=== PATIENT | male | born 1960 | race Caucasian/White ===

== ENCOUNTER → 2016-12-23 | Outpatient (CLI) | payer OTHER ==
[~2016-12-23] MED LIST: APIX5TAB2 PO; ASP81CT PO; CEFU500T34 PO; HCTZ12.5T PO; HYDR12.570 PO; LISI10TA PO; LOSA50TA6 PO; LVT.1T PO; MULT-974 PO; NAPR-248 PO; ONDA-42 PO; OXYC1TAB87 PO; REGADENOSON 0.4 MG/5 ML SYR (LEXISCAN) IV ONE
--- OUTSIDE RECORDS SUMMARY | 2016-12-23 08:25 | XMS REPORT ---
Author Author KAYCEE RESENDIZ [facility] eClinicalWorks Address Unknown Phone Unavailable Care Team Providers Care Funeral Home Director Name Role Phone KAYCEE RESENDIZ CP Unavailable Allergies No Known Allergies Problems Problem Type Condition Code Onset Dates Condition Status Problem Unspecified arthropathy, site unspecified 716.90 Active Problem Other heart block 426.6 Active Problem Pain in joint, shoulder region 719.41 Active Problem PAF (paroxysmal atrial fibrillation) I48.0 Active Problem Essential hypertension I10 Active Problem Acquired hypothyroidism E03.9 Active Problem Unspecified disorders of bursae and tendons in shoulder region 726.10 Active Problem Impacted cerumen 380.4 Active Problem Hypertension I10 Active Problem Other malaise and fatigue 780.79 Active Assessment Acquired hypothyroidism E03.9 Active Problem Unspecified hypothyroidism 244.9 Active Problem Unspecified site of sprain and strain 848.9 Active Medications Medication Code System Code Instructions Start Date End Date Status Dosage Levothyroxine Sodium [facility] [address]-71 112 MCG Orally Once a day Jun 13, 2016 1 tablet on an empty stomach in the morning Results No Known Results Summary Purpose eClinicalWorks Submission
[2016-12-23] MEDS: CATHETER FLUSH 10 ML SYR IV PRN ×2 (11:34→12:58)
[2016-12-23 12:48] VITALS: BP 104/84
--- NOTE | 2016-12-24 07:26 | ECHOCARDIOGRAPHY REPORT ---
PROCEDURE PHYSICIAN: JORJE PAIZ DATE OF PROCEDURE: 12/23/2016 TWO DIMENSIONAL ECHOCARDIOGRAM REPORT PRIMARY PHYSICIAN: OTHER PHYSICIAN: REFERRING PHYSICIAN: ORDERING PHYSICIAN: INDICATION FOR THE PROCEDURE: MEASUREMENTS DERIVED VALUES LV DIAMETER (LAX) NORMALS NORMALS Diastolic 4.4 (3.6-5.2) Eject. Fract. (60%+/-6%) Systolic (2.3-3.9) Diastolic Vol. % Shortening (0.22-0.42) Systolic Vol. Aortic Root 3.1 IVS THICKNESS Diastolic 1.1 (0.6-1.1) LVPW THICKNESS Diastolic 1.2 (0.6-1.1) LA DIAMETER Systolic 3.9 (2.1-3.7) DESCRIPTION: Two-dimensional echocardiography shows normal global left ventricular systolic function. No distinct regional wall motion abnormalities were seen except some paradoxical septal motion during paced ventricular beats or during premature ventricular contractions. Aortic, mitral and tricuspid valve leaflets show good leaflet excursion. There is no significant pericardial effusion. Doppler imaging shows trivial tricuspid regurgitation. There is no Doppler evidence of any significant valvular stenosis. There is no evidence of significant intracardiac shunt on this transthoracic echocardiographic study. Inferior vena cava appears to be of normal size and exhibits normal inspiratory collapse. Pulmonary artery systolic pressure is estimated to be approximately 35 mmHg. CONCLUSIONS: 1. Normal global left ventricular systolic function with an ejection fraction of approximately 55 to 60%. 2. No significant wall motion abnormality 3. Trivial tricuspid regurgitation. 4. No evidence of any significant valvular stenosis. 5. Pulmonary artery systolic pressure is estimated to be approximately 35 mmHg. Job ID: [id number] Dictated Date: 12/23/2016 13:23:56 Aerial Survey Technician Date: 12/24/2016 07:18:57 / misha HUNTLEY
== END ==
LOC: CARD 08:22
PROVIDERS: ATTEND Internal Medicine Cardiovascular Disease
DX: I47.2 Ventricular tachycardia (principal); I48.0 Paroxysmal atrial fibrillation; I44.2 Atrioventricular block, complete; I10 Essential (primary) hypertension; G47.33 Obstructive sleep apnea (adult) (pediatric)
CPT/HCPCS: 93306

== ENCOUNTER → 2017-11-05 | Outpatient (CLI) | payer SELFPAY ==
[~2017-11-05] MED LIST changes: -REGADENOSON 0.4 MG/5 ML SYR (LEXISCAN) IV ONE
[2017-11-05 15:46] LABS: BASOPHILS % (AUTO) 0 % (0-10); EOSINOPHILS # (AUTO) 0.1 10^3/uL (0.0-0.3); EOSINOPHILS % (AUTO) 1 % (0-10); HEMATOCRIT 44 % (40-54); HEMOGLOBIN 15.7 G/DL (13.3-17.7); LYMPHOCYTES # (AUTO) 2.5 X 10^3 (1.0-4.0); LYMPHOCYTES % (AUTO) 34 % (12-44); MEAN CORPUSCULAR HEMOGLOBIN 33 PG (25-34); MEAN CORPUSCULAR HGB CONC 36 G/DL (32-36); MEAN CORPUSCULAR VOLUME 93 FL (80-99); MEAN PLATELET VOLUME 10.2 FL (7.4-10.4); MONOCYTES # (AUTO) 0.7 X 10^3 (0.0-1.0); MONOCYTES % (AUTO) 10 % (0-12); NEUTROPHILS % (AUTO) 55 % (42-75); PLATELET COUNT 233 10^3/uL (130-400); RED BLOOD COUNT 4.75 10^6/uL (4.35-5.85); RED CELL DISTRIBUTION WIDTH 12.5 % (10.0-14.5); WHITE BLOOD COUNT 7.3 10^3/uL (4.3-11.0)
[2017-11-05 16:08] LABS: ALANINE AMINOTRANSFERASE 44 U/L (0-55); ALBUMIN 4.3 GM/DL (3.2-4.5); ALKALINE PHOSPHATASE 66 U/L (40-136); BILIRUBIN,TOTAL 0.8 MG/DL (0.1-1.0); BUN/CREATININE RATIO 17; CALCIUM 9.6 MG/DL (8.5-10.1); CARBON DIOXIDE 20 MMOL/L (21-32); CHLORIDE 110 MMOL/L (98-107); CREATININE SERUM 1.05 MG/DL (0.60-1.30); GFR ESTIMATED > 60; GLUCOSE 93 MG/DL (70-105); MAGNESIUM 2.3 MG/DL (1.8-2.4); SODIUM 141 MMOL/L (135-145); TOTAL PROTEIN 7.6 GM/DL (6.4-8.2)
== END ==
LOC: LAB 15:25
PROVIDERS: ATTEND Nurse Practitioner Family
DX: I48.0 Paroxysmal atrial fibrillation (principal); I44.2 Atrioventricular block, complete; I95.89 Other hypotension
CPT/HCPCS: 36415; 80053; 83735; 85025

== ENCOUNTER → 2017-11-10 | Outpatient (CLI) | payer SELFPAY | LOC: LAB 16:31 | PROVIDERS: ATTEND Nurse Practitioner Family | DX: I48.0 Paroxysmal atrial fibrillation (principal); I44.2 Atrioventricular block, complete; I95.89 Other hypotension | CPT/HCPCS: 36415; 84443 ==

== ENCOUNTER → 2018-03-02 | Outpatient (CLI) | payer OTHER | LOC: CARD 09:07 | PROVIDERS: ATTEND Nurse Practitioner Family | DX: I48.0 Paroxysmal atrial fibrillation (principal); R07.89 Other chest pain; I10 Essential (primary) hypertension; G47.33 Obstructive sleep apnea (adult) (pediatric) | CPT/HCPCS: 93306 ==

== ENCOUNTER 2018-07-15 18:41 | Emergency (ER) | payer SELFPAY ==
[~2018-07-15] VITALS: Ht 172.7 cm; Wt 95.3 kg
--- OUTSIDE RECORDS SUMMARY | 2018-07-15 18:50 | XMS REPORT | Encounter Summary ---
Author Author [facility] Organization [facility] Address Unknown Phone Unavailable Care Team Providers Care A&P Technician Name Role Phone Brigido Juarez MD PCP Reason for Visit * Reason Comments Remote Monitoring to [facility]. Transferred Encounter Details Date Type Department Care Team Description 07/05/2018 Telephone [facility] Cardiology Ajay Neri RN Remote Monitoring [facility]600 Transferred (to Via [address] [place] [id number] [place] [address]. ) [phone] Social History Tobacco Use Types Packs/Day Years Used Date Never Smoker Smokeless Tobacco: Never Used Alcohol Use Drinks/Week oz/Week Comments No Sex Assigned at Date Recorded Not on file as of this encounter Miscellaneous Notes * Telephone Encounter - Ajay Neri RN - 07/12/2018 10:[address] Sainz's office and spoke with the transitions manager rn. She will have the staff accept the request. DB. * Telephone Encounter - Ajay Neri RN - 07/07/2018 8:[address] Melissa Sainz is with [facility] (contact Mukesh Carballo @ [phone]). Request was sent to their practice. DB. * Telephone Encounter - Ajay Neri RN - 07/05/2018 3:53 PM CDT We continue to receive remote transmissions on this patient. Per previous notes in the EMR the patient has transferred CV care to Dr. Melissa Sainz at [facility] in [place], [place]. It appears the patients remote monitoring was never transferred. A request was sent via [employer] website to transfer to the patients remote monitoring to [facility] (Contact : Nereyda Merchant @ [phone]). Db. in this encounter Plan of Treatment Not on fileas of this encounter Visit Diagnoses Not on filein this encounter
--- OUTSIDE RECORDS SUMMARY | 2018-07-15 18:50 | XMS REPORT ---
Author Author PROSPER NATH Organization [facility] Address [address] [place] [address] Care Team Providers Care Mender [employer] Name Role Phone PROSPER NATH Unavailable PROBLEMS Type Condition ICD9-CM Code [id number] Code Onset Dates Condition Status SNOMED Code Problem Prostatism N40.0 Active 46180339 Problem Dilated cardiomyopathy I42.0 Active 433488213 Problem PAF (paroxysmal atrial fibrillation) I48.0 Active 081838772 Problem Acquired hypothyroidism E03.9 Active 972995875 Problem Essential hypertension I10 Active 05555610 ALLERGIES No Information ENCOUNTERS Encounter Location Date Diagnosis [place] [address] [address] Apr, [facility] [address] [address] Apr, [facility] [address] [address] Apr, Acute midline thoracic back pain M54.6 ; Trigger point with back pain M54.9 and Muscle spasm M62.838 [place] [address] [place] [id number] [place] [address] Jan, [facility] [address] [place] [id number] [place] [address]- 9475 Dec, Acquired hypothyroidism E03.9 and Prostatism N40.0 [facility] [address] [address] Dec, [facility] [address] [place] [id number] [place] [address]- 6[address] Nov, [facility] [address] [address] February, Dilated cardiomyopathy I42.0 [facility] [address] [place] [id number] [place] [address]- 5[address] February, Essential hypertension I10 [facility] [address] [place] [id number] [place] [address]- 87[address] Jan, [facility] [address] [place] [id number] [place] [address] 14194- 8045 Nov, Acquired hypothyroidism E03.9 [facility] [address] [place] [id number] [place] [address] 82693- 2662 Nov, [facility] [address] [address] Nov, Hypertension I10 [facility] [address] [place] [id number] [place] [address]14- 9906 Aug, Lipoma of neck D17.0 [facility] [address] [place] [id number] [place] [address]18- 4480 Aug, Skin tag L91.8 [facility] [address] [place] [id number] [place] [address]- 1370 Aug, Acquired hypothyroidism E03.9 and Skin lesions L98.9 [facility] [address] [place] [id number] [place] [address] 11363- 7622 May, Acquired hypothyroidism E03.9 [facility] [address] [place] [id number] [place] [address] 37912- 0544 May, Acquired hypothyroidism E03.9 ; PAF (paroxysmal atrial fibrillation) I48.0 and Essential hypertension I10 [facility] [address] [place] [id number] [place] [address] 23755- 5118 May, Acquired hypothyroidism E03.9 ; Hypertension I10 and PAF ( paroxysmal atrial fibrillation) I48.0 [facility] [address] [place] [id number] [place] [address] 38762- 7428 Dec, Hypertension I10 [facility] [address] [address] Aug, [facility] [address] [place] [id number] [place] [address] 9[address]97- 2904 Jul, [facility] [address] [address] May, [facility] [address] [place] [id number] [place] [address] 41639- 9829 May, [facility] [address] [place] [id number] [place] [address] 07492- 1290 May, Wide-complex tachycardia 427.1 ; Hypertension 401.9 ; PAF ( paroxysmal atrial fibrillation) 427.31 and Apnea, sleep 780.57 [facility] [address], [place] [address] February, Tooth pain 525.9 [facility] [address] [place] [id number] [place] [address] 88727- 1336 February, [facility] [address] [place] [address] 02105- 4896 Jan, [facility] [address] [place] [id number] [place] [address] 12894- 3220 Jan, [facility] [address], [place] [address] 48[address] Dec, [facility] [address] [place] [address] 4[address] Dec, [facility] [address] [place] [address]- 7263 Nov, [facility] [address] [place] [id number] [place] [address] 55629- 6581 Nov, [facility] [address] [place] [address] 4[address] Nov, [facility] [address] [place] [id number] [place] [address] 70849- 0326 Nov, [facility] [place] [facility] [address] [id number] [place] [address] 5287 Nov, [facility] [place] [facility] [address] [id number] [place] [address] Nov, [facility] [place] [facility] [address] [facility] [id number] [place] [address]- 3508 15 Oct, 2014 [facility] [place] [facility] [address] [id number] [place] [address]- 9219 15 Oct, 2014 [facility] [place] [facility] [address] [id number] [place] [address]- 1534 Sep, [facility] [place] [facility] [address] [id number] [place] [address]- 8406 Sep, [facility] [place] [facility] [address] [facility] [id number] [place] [address]- 5460 Sep, [facility] [place] [facility] [address] [facility] [id number] [place] [address]- 1356 Sep, [facility] [place] [facility] [address] [facility] [id number] [place] [address]- 0287 Sep, [facility] [place] [facility] [address] [facility] [id number] [place] [address]- 5134 Sep, [facility] [place] [facility] [address] [facility] [id number], [place] [address]- 65[address] Jul, [facility] [place] [facility] [address] [id number], [place] [address]- [address] Jul, [facility] [place] [facility] [address] [id number], [place] [address]- 4[address] Jul, [facility] [place] [facility] [address] [facility] [id number], [place] [address]- 6865 Jul, [facility] [place] [facility] [address] [facility] [id number], [place] [address]- 2695 Jul, [facility] [place] [facility] [address] [id number] [place] [address]- 6556 Jul, [facility] [place] [facility] [address] [id number] [place] [address]- 3847 Jun, [facility] [place] [facility] [address] [id number] [place] [address]- 0906 Jun, [facility] [place] [facility] [address] [id number] [place] [address]- 4546 Jun, [facility] [place] [facility] [address] [id number] [place] [address]- 9762 May, [facility] [place] [facility] [address] [id number] [place] [address]- 7621 May, [facility] [place] [facility] [address] [id number] [place] [address]- 6618 May, [facility] [place] [facility] [address] [id number] [place] [address]- 6167 May, [facility] [place] [facility] [address] [id number] [place] [address]- 2182 May, [facility] [place] [facility] [address] [id number] [place] [address]- 7785 May, [facility] [place] [facility] [address] [id number] [place] [address]- 6412 Apr, [facility] [place] [facility] [address] [id number] [place] [address]- 9490 Apr, [facility] [place] [facility] [address] [id number] [place] [address]- 8316 Apr, [facility] [place] [facility] [address] [id number] [place] [address]- 9992 Apr, [facility] [place] [facility] [address] [id number] [place] [address]- 2796 Apr, [facility] [place] [facility] [address] [id number] [place] [address]- 0420 Apr, [facility] [place] [facility] [address] [id number] [place] [address]- 2249 Mar, [facility] [place] [facility] [address] [id number] [place] [address]- 6710 Mar, [facility] [place] [facility] [address] [id number] [place] [address]- 3535 Mar, [facility] [place] [facility] [address] [id number] [place] [address]- 9869 Mar, [facility] [place] [facility] [address] [id number] [place] [address]- 3362 Mar, [facility] [place] [facility] [address] [id number] [place] [address]- 3939 Mar, [facility] [place] [facility] [address] [id number] [place] [address]- 8622 Mar, [facility] [place] [facility] [address] [id number] [place] [address]- 7842 February, [facility] [place] [facility] [address] [id number] [place] [address]- 8517 February, [facility] [place] [facility] [address] [id number] [place] [address]- 5972 February, [facility] [place] [facility] [address] [id number] [place] [address]- 8446 February, [facility] [place] [facility] [address] [id number] [place] [address]- 0053 February, [facility] [place] [facility] [address] [id number] [place] [address]- 8107 February, [facility] [place] [facility] [address] [id number] [place] [address]- 6614 Jan, [facility] [place] [facility] [address] [id number] [place] [address]- 2095 Jan, [facility] [place] [facility] [address] [id number] [place] [address]- 6363 Jan, [facility] [place] [facility] [address] [id number] [place] [address]- 3465 28 Jan, 2014 [facility] [place] [facility] [address] [id number] [place] [address]- 1975 Jan, [facility] [place] [facility] [address] [id number] [place] [address]- 0508 Jan, [facility] [place] [facility] [address] [id number] [place] [address]- 3953 Jan, [facility] [place] [facility] [address] [id number] [place] [address]- 8138 Jan, [facility] [place] [facility] [address] [id number] [place] [address]- 7995 Jan, [facility] [place] [facility] [address] [id number] [place] [address]- 8486 Jan, [facility] [place] [facility] [address] [id number] [place] [address]- 7098 Nov, [facility] [place] [facility] [address] [id number] [place] [address]- 7254 Nov, [facility] [place] [facility] [address] [id number] [place] [address]- 9701 Nov, [facility] [place] [facility] [address] [id number] [place] [address]- 7853 Nov, [facility] [place] [facility] [address] [id number] [place] [address]- 1601 Oct, [facility] [place] [facility] [address] [id number] [place] [address]- 2116 Oct, [facility] [place] [facility] [address] [id number] [place] [address]- 7458 Oct, [facility] [place] [facility] [address] [id number] [place] [address]- 2947 Aug, [facility] [address] [id number] [place] [address]- 7133 Aug, [facility] [place] [facility] [address] [id number] [place] [address]- 8566 Jun, [facility] [address] [id number] [place] [address]- 0096 February, [facility] [place] [facility] [address] [id number] [place] [address]- 8156 February, [facility] [address] [id number] [place] [address]- 5619 Dec, [facility] [place] [facility] [address] [id number] [place] [address]- 8246 15 Nov, 2012 [facility] [place] [facility] [address] [id number] [place] [address]- 5786 08 Nov, 2012 [facility] [place] [facility] [address] [id number] [place] [address]- 9034 08 Nov, 2012 [facility] [place] [facility] [address] [id number] [place] [address]- 3476 07 Nov, 2012 [facility] [place] [facility] [address] [id number] [place] [address]- 3436 05 Nov, 2012 [facility] [place] [facility] [address] [id number] [place] [address]- 3866 Oct, [facility] [place] [facility] [address] [id number], [place] [address]- 9846 Oct, [facility] [place] [facility] [address] [id number] [place] [address]- 4496 Aug, [facility] [place] [facility] [address] [id number] [place] [address]- 4366 Aug, [facility] [place] [facility] [address] [id number] [place] [address]- 1136 Oct, [facility] [place] [facility] [address] [facility] [id number] [place] [address]- 6711 Apr, [facility] [address] [facility] [id number] [place] [address]- 9800 Sep, [facility] [address] [facility] [id number] [place] [address]- 3140 Jan, IMMUNIZATIONS No Known Immunizations SOCIAL HISTORY Never Assessed REASON FOR VISIT Rx change PLAN OF CARE VITAL SIGNS MEDICATIONS Medication Instructions Dosage Frequency Start Date End Date Duration Status Baclofen 10 mg Orally Three times a day 1 tablet with food or milk 8h Apr, Apr, 10 days Active RESULTS No Results PROCEDURES No Known procedures INSTRUCTIONS MEDICATIONS ADMINISTERED No Known Medications MEDICAL (GENERAL) HISTORY Type Description Date Medical History hypertension Medical History Arthritis Medical History Hypothyroidism Medical History Sleep apnea Surgical History cardiac pacemaker 02/2017 Surgical History heart cath Hospitalization History surgeries only
--- OUTSIDE RECORDS SUMMARY | 2018-07-15 18:50 | XMS REPORT | Clinical Summary ---
Author Author [facility] Organization [facility] Address Unknown Phone Unavailable Care Team Providers Care Manager Park Name Role Phone Brigido Juarez MD PCP Source Comments Some departments are not documenting in the electronic medical record. If you do not see the information that you expected, contact Release of Information in the Health Information Management department at [phone] for further assistance in locating additional records.[facility] Allergies No Known Allergies Current Medications Prescription Sig. Disp. Refills Start End Date Status Date metoprolol XL (TOPROL XL) Take 50 mg by mouth Active 50 mg extended release daily. tablet hydroCHLOROthiazide Take 12.5 mg by mouth Active (HYDRODIURIL) 12.5 mg every morning. tablet levothyroxine (SYNTHROID) Take 100 mcg by mouth Active 100 mcg tablet daily 30 minutes before breakfast. losartan (COZAAR) 50 mg Take 50 mg by mouth Active tablet daily. acetaminophen (TYLENOL) Take 1,000 mg by mouth Active 500 mg tablet every 6 hours as needed for Pain. Max of 4,000 mg of acetaminophen in 24 hours. vitamins, multiple tablet Take 2 Tabs by mouth Active daily. Chewables calcium carbonate (TUMS) Chew 500 mg by mouth Active 500 mg (200 mg elemental three times daily as calcium) chewable tablet needed. apixaban (ELIQUIS) 5 mg Take 1 Tab by mouth twice 60 Tab 03/18/20 Active tabletIndications: daily. 03/18/17 Resume 17 Paroxysmal atrial this evening, then twice fibrillation (HCC) daily as directed on 03/19/17. Active Problems Problem Noted Date Familial cardiomyopathy (HCC) 05/10/2017 ICD (implantable cardioverter-defibrillator), dual, in situ 03/18/2017 Overview: 03/17/17 [address] ICD by Dr. Mata. NSVT (nonsustained ventricular tachycardia) (HCC) 03/17/2017 Chronic anticoagulation 03/16/2017 Last Assessment & Plan: He has been holding his Eliquis since Thursday in preparation for his procedure. Cardiac pacemaker in situ 01/01/2017 Last Assessment & Plan: He underwent full device check in January which demonstrated stable function. History of complete heart block 12/25/2016 Overview: 02/11/2014 [facility] MRI: medtronic with capsure fix MRI atrial and RV lead Paroxysmal atrial fibrillation (HCC) 12/25/2016 Overview: 2013 Echo: normal LV fx with EF 60% with no wall motion abnormalities, normal RV size and function 2014 Cath showed normal coronaries with normal EF. no angiographically significant cad, mild elevation left ventricular end diastolic pressure, no significant mitral regurgitation 2014 Echo: normal 55 - 60% global left ventricular systolic function, no significant wall motion abnormality, trivial tricuspid regurg, no evidence of valvular stenosis, PAP est 35 mmHg 12/23/16 MPI - regadenoson: no evidence of significant myocardial ischemia or infarction on this study, gating could not be carried out due to an irregular heart rate L ast Assessment & Plan: No atrial fibrillation per his device last visit. He is Eliquis for anticoagulation for stroke risk prophylaxis which is being held at this time. Essential hypertension with goal blood pressure less than 140/90 12/25/2016 Last Assessment & Plan: Well controlled on current therapy. KARLOS (obstructive sleep apnea) 12/25/2016 FHx: sudden 12/25/2016 Overview: father 2 brothers - idiopathic cardiomyopathy, VR and ICD implantation and subsequently cardiac transplants one brother following transplant with pneumonia and thrush one brother living and doing well cardiac transplant 1993 Wide-complex tachycardia (HCC) 12/25/2016 Last Assessment & Plan: He continues to have episodes of NSVT documented on his device. We contacted Justinl to see if he has had any sustained VT from noted on his LifeVest since we last saw him and he has not. Given his significant family history of sudden cardiac and cardiomyopathy, his ventricular arrhythmias, and his abnormal MRI, once again we discussed that we recommend that he undergo implantation of a permanent dual-chamber ICD for sudden cardiac prophylaxis. Once again, the details, benefits, and risks of the procedure were reviewed in detail. All of his and his family's questions were answered to their satisfaction and he wishes to proceed. As stated above, his PET was canceled today as he has only been fasting for 6 hours and a minimum of 18 hour fast is required due to the likelihood of having a false positive. We will try to reschedule this while he is admitted or immediately after discharge. Encounters Date Type Specialty Care Team Description 07/05/2018 Telephone Cardiology Ajay Neri RN Remote Monitoring Transferred (to [facility]. ) 06/23/2018 Hospital Cardiology Yao aMta MD Encounter from Last 3 Months Family History Medical History Relation Name Comments Heart Attack Father Relation Name Status Comments Father Mother Social History Tobacco Use Types Packs/Day Years Used Date Never Smoker Smokeless Tobacco: Never Used Alcohol Use Drinks/Week oz/Week Comments No Sex Assigned at Date Recorded Not on file Last Filed Vital Signs Vital Sign Reading Time Taken Blood Pressure 120/90 05/01/2017 1:52 PM CDT Pulse 71 05/01/2017 1:52 PM CDT Temperature 36.7 C (98.1 F) 03/18/2017 9:35 AM CDT Respiratory Rate - - Oxygen Saturation 97% 03/18/2017 9:35 AM CDT Inhaled Oxygen - - Concentration Weight 103.9 kg (229 lb 1.6 oz) 05/01/2017 1:52 PM CDT Height 170.2 cm (5' 7") 05/01/2017 1:52 PM CDT Body Mass Index 35.88 05/01/2017 1:52 PM CDT Plan of Treatment Health Maintenance Due Date Last Done Comments HEPATITIS C SCREENING 1961 PHYSICAL (COMPREHENSIVE) 1968 EXAM PERTUSSIS VACCINE 1972 HIV SCREENING 1976 TETANUS VACCINE 1978 COLORECTAL CANCER 2011 SCREENING SHINGLES RECOMBINANT 2011 VACCINE (1 of 2) INFLUENZA VACCINE 07/26/2018 Implants Implanted Type Area Manager Automotive Device Expiration Model / Identifier Date Serial / Lot Chest Pacemaker Procedures Procedure Name Priority Date/Time Associated Diagnosis Comments DEVICE EVALUATION - Routine 06/24/2018 ICD (implantable Results for this REMOTE ICD 10:29 AM CDT cardioverter-defibrillato procedure are in the r) in place results section. from Last 3 Months Results * DEVICE EVALUATION - REMOTE ICD (06/24/2018 10:29 AM) Generator Model # Evera MRI XT DR Bermudez OTHER OUTSIDE LAB [id number] Generator Serial # [id number] OTHER OUTSIDE LAB Generator Implnat Date 03/17/2017 OTHER OUTSIDE LAB Remote Monitor Serial# [id number] OTHER OUTSIDE LAB Accssory Serial Number MyCarelink OTHER OUTSIDE LAB PRINCE/EOL Indicator BV 2.73 OTHER OUTSIDE LAB Generator Manager Automotive Medtronic OTHER OUTSIDE LAB Generator Investigational No OTHER OUTSIDE LAB Wireless Generator Yes OTHER OUTSIDE LAB Device Type DDD-ICD OTHER OUTSIDE LAB Generator MRI Conditional Yes OTHER OUTSIDE LAB Device [place] [employer] OTHER OUTSIDE LAB Transmitter Compatible Remote Connectivity Cellular adaptor OTHER OUTSIDE LAB Atrial Lead Model # 5086MRI CapSureFix OTHER OUTSIDE LAB Atrial Lead Serial # [id number] OTHER OUTSIDE LAB Atrial Lead Implant Date 02/11/2014 OTHER OUTSIDE LAB Atrial Lead Diaph. na OTHER OUTSIDE LAB Stimulation Atrial Lead Manager Automotive Medtronic OTHER OUTSIDE LAB Atrial Lead No OTHER OUTSIDE LAB Investigational Atrial Lead MRI Yes OTHER OUTSIDE LAB Conditional Atrial Lead Fixation active fixation OTHER OUTSIDE LAB Atrial Lead Location right atrial appendage OTHER OUTSIDE LAB Atrial Lead Pin Connector IS1 OTHER OUTSIDE LAB Atrial Lead Polarity Bipolar OTHER OUTSIDE LAB RV Lead Model # [employer] Quattro Secure S MRI OTHER OUTSIDE LAB Aidan 6935M - 62cm RV Lead Serial # [id number] OTHER OUTSIDE LAB RV Lead Implant Date 03/17/2017 OTHER OUTSIDE LAB RV Lead Diaph. 10 OTHER OUTSIDE LAB Stimulation RV Lead Manager Automotive Medtronic OTHER OUTSIDE LAB RV Lead Investigational No OTHER OUTSIDE LAB RV Lead MRI Conditional Yes OTHER OUTSIDE LAB RV Lead Fixation active fixation OTHER OUTSIDE LAB RV Lead Location RV low septum OTHER OUTSIDE LAB RV Lead Coil Single OTHER OUTSIDE LAB Device Mode DDDR OTHER OUTSIDE LAB Lower Rate Limit 60 OTHER OUTSIDE LAB Upper Rate Limit 130 OTHER OUTSIDE LAB Sensor Rate Limit 130 OTHER OUTSIDE LAB Pace AV Delay 180 OTHER OUTSIDE LAB Sense AV Delay 150 OTHER OUTSIDE LAB VT Monitor 167 OTHER OUTSIDE LAB VT Detect Rate (bpm) 171 OTHER OUTSIDE LAB VT Detect Rate Tx ATP AND SHOCK OTHER OUTSIDE LAB FVT Detect Rate (bpm) 250 OTHER OUTSIDE LAB FVT Detect Rate Tx ATP AND SHOCK OTHER OUTSIDE LAB VF Detect Rate (bpm) 200 OTHER OUTSIDE LAB VF Detect Rate Tx ATP AND SHOCK OTHER OUTSIDE LAB Mode Switch (bpm) 150 OTHER OUTSIDE LAB High A Rate Detect >150 bpm with treatment OTHER OUTSIDE LAB Mode Switch Status On OTHER OUTSIDE LAB Device Implanted By Yao Mata MD OTHER OUTSIDE LAB EP Device Followed by Yao Mata MD OTHER OUTSIDE LAB Name On AntiCoag Date verified 03/25/18 OTHER OUTSIDE LAB EP Device Followed By JOHANA OTHER OUTSIDE LAB Known Diagnosed AFib Yes OTHER OUTSIDE LAB On Anticoagulation Yes OTHER OUTSIDE LAB Known Diagnosed VT VT Yes OTHER OUTSIDE LAB ATP No OTHER OUTSIDE LAB Device Shock No OTHER OUTSIDE LAB Date of Last Programming 05/01/17 OTHER OUTSIDE LAB Next Programming Check 04/2018 OTHER OUTSIDE LAB Due Date of Last ICM 03/24/18 OTHER OUTSIDE LAB Evaluation Next ICM Check Due 06/22/18 OTHER OUTSIDE LAB HF Patient Yes OTHER OUTSIDE LAB Date of Last Remote Check 06/23/18 OTHER OUTSIDE LAB Next Remote Check Due 09/22/18 OTHER OUTSIDE LAB Enrollment Date 03/18/17 OTHER OUTSIDE LAB Date of baseline remote 03/18/17 OTHER OUTSIDE LAB transmission AT/AF Daily [place] Hours 6 OTHER OUTSIDE LAB Average Vent Rate during 100 OTHER OUTSIDE LAB AT/AF #BPM Average Vent Rate During 6 OTHER OUTSIDE LAB AT/AF #Hours Remote Monitoring? Yes OTHER OUTSIDE LAB Daily [place] Threshld On OTHER OUTSIDE LAB Alert? Average Venticular Rate On OTHER OUTSIDE LAB AT/AF On/Off VF Detection/Therapy Off On OTHER OUTSIDE LAB Device Remote Manual Yes OTHER OUTSIDE LAB Downloads Remote Check? Yes OTHER OUTSIDE LAB Narrative Performed At OTHER OUTSIDE LAB Current Monitoring Period - 06/23/18 through 09/22/18 [07/05/2018 3:46:50 PM - AJAY NERI] Patient initiated interrogation received on 07/01 and reviewed today for unknown reason.Device function appears normal. Presenting EGM shows AP - CNC OPERATOR MACHINIST @ 80's bpm (07/01 @ 2205). Events noted since 06/23/18: Atrial:1 event with an atrial burden of <0.1% that lasted 2 min 46 sec on 06/26 that shows brief Atrial Fibrillation/Flutter. Patient has a known history of Atrial Fibrillation with Eliquis in place. Ventricular:None. Thoracic impedence is stable. Per previous notes in the EMR the patient has transferred CV care to Dr. Melissa Sainz at [facility] in [place], [place]. Will facilitate the transfer of the patients remote monitoring. Results routed to Dr. Riley for review and signature. DB. [06/24/2018 10:32:09 AM - MARIELOS CHAMORRO] Please see scanned data sheets for further review. Scheduled Carelink transmission received for dual chamber ICD. Device function appears appropriate. Presenting EGM shows AP-CNC OPERATOR MACHINIST rate of 71 bpm. Battery longevity 7.5 years. Events noted since 06/02/18: Atrial:1 AT/AF event on 06/13/18 lasting 1 min 47 sec. EGM appears to show AFL with VS. Rapid onset and term seen. Avg A-rate of ~273 bpm and V-rate of 69-109 bpm. Pt has known Hx of PAF and is currently on Eliquis. Ventricular:1 VHR event on 06/05/18 lasting ~1 sec. EGM suggests NSVT. Rapid onset and term seen. V-rate of ~200 bpm. Pt is currently CNC OPERATOR MACHINIST - 99.3%. Thoracic Impedance trend is stable for this patient. Next remote scheduled for 3 mo[address] Results routed to Dr. Montiel, Tobias for signature and review. __ Performing Organization Address City/State/Zipcode Phone Number OTHER OUTSIDE LAB from Last 3 Months
--- OUTSIDE RECORDS SUMMARY | 2018-07-15 18:50 | XMS REPORT | Encounter Summary ---
Author Author [facility] Organization [facility] Address Unknown Phone Unavailable Care Team Providers Care Tomography Technologist Name Role Phone Brigido Juarez MD PCP Encounter Details Date Type Department Care Team Description 06/23/2018 [facility] Cardiology Yao Mata MD Encounter Remote Device Check [address] [phone] [address] [place], [place] [id number] Social History Tobacco Use Types Packs/Day Years Used Date Never Smoker Smokeless Tobacco: Never Used Alcohol Use Drinks/Week oz/Week Comments No Sex Assigned at Date Recorded Not on file as of this encounter Medications at Time of Discharge Medication Sig. Disp. Refills Start Date End Date acetaminophen (TYLENOL) Take 1,000 mg by mouth 500 mg tablet every 6 hours as needed for Pain. Max of 4,000 mg of acetaminophen in 24 hours. apixaban (ELIQUIS) 5 mg Take 1 Tab by mouth twice 60 Tab 03/18/2017 tabletIndications: daily. 03/18/17 Resume Paroxysmal atrial this evening, then twice fibrillation (HCC) daily as directed on 03/19/17. calcium carbonate (TUMS) Chew 500 mg by mouth 500 mg (200 mg elemental three times daily as calcium) chewable tablet needed. hydroCHLOROthiazide Take 12.5 mg by mouth (HYDRODIURIL) 12.5 mg every morning. tablet levothyroxine (SYNTHROID) Take 100 mcg by mouth 100 mcg tablet daily 30 minutes before breakfast. losartan (COZAAR) 50 mg Take 50 mg by mouth tablet daily. metoprolol XL (TOPROL XL) Take 50 mg by mouth 50 mg extended release daily. tablet vitamins, multiple tablet Take 2 Tabs by mouth daily. Chewables as of this encounter Plan of Treatment Not on fileas of this encounter Procedures Procedure Name Priority Date/Time Associated Diagnosis Comments DEVICE EVALUATION - Routine 06/24/2018 ICD (implantable Results for this REMOTE ICD 10:29 AM CDT cardioverter-defibrillato procedure are in the r) in place results section. in this encounter Results * DEVICE EVALUATION - REMOTE ICD (06/24/2018 10:29 AM) Generator Model # Evera MRI XT DR Bermudez OTHER OUTSIDE LAB [id number] Generator Serial # [id number] OTHER OUTSIDE LAB Generator Implnat Date 03/17/2017 OTHER OUTSIDE LAB Remote Monitor Serial# [id number] OTHER OUTSIDE LAB Accssory Serial Number MyCarelink OTHER OUTSIDE LAB PRINCE/EOL Indicator BV 2.73 OTHER OUTSIDE LAB Generator Paediatric Thoracic Physician Medtronic OTHER OUTSIDE LAB Generator Investigational No OTHER OUTSIDE LAB Wireless Generator Yes OTHER OUTSIDE LAB Device Type DDD-ICD OTHER OUTSIDE LAB Generator MRI Conditional Yes OTHER OUTSIDE LAB Device [place] [employer] OTHER OUTSIDE LAB Transmitter Compatible Remote Connectivity Cellular adaptor OTHER OUTSIDE LAB Atrial Lead Model # [id number] CapSureFix OTHER OUTSIDE LAB Atrial Lead Serial # [id number] OTHER OUTSIDE LAB Atrial Lead Implant Date 02/11/2014 OTHER OUTSIDE LAB Atrial Lead Diaph. na OTHER OUTSIDE LAB Stimulation Atrial Lead Paediatric Thoracic Physician Medtronic OTHER OUTSIDE LAB Atrial Lead No [...] 6935M - 62cm RV Lead Serial # [id number] OTHER OUTSIDE LAB RV Lead Implant Date 03/17/2017 OTHER OUTSIDE LAB RV Lead Diaph. 10 OTHER OUTSIDE LAB Stimulation RV Lead Paediatric Thoracic Physician Medtronic OTHER OUTSIDE LAB RV Lead Investigational [...] 03/18/17 OTHER OUTSIDE LAB transmission AT/AF Daily [place] Hours 6 OTHER OUTSIDE LAB Average Vent Rate during 100 OTHER OUTSIDE LAB AT/AF #BPM Average Vent Rate During 6 OTHER OUTSIDE LAB AT/AF #Hours Remote Monitoring? Yes OTHER OUTSIDE LAB Daily [place] Threshld On OTHER OUTSIDE LAB Alert? Average Venticular Rate On OTHER OUTSIDE LAB AT/AF On/Off VF Detection/Therapy Off On OTHER OUTSIDE LAB Device Remote Manual Yes OTHER OUTSIDE LAB Downloads Remote Check? Yes OTHER OUTSIDE LAB Narrative Performed At OTHER OUTSIDE LAB Current Monitoring Period - 06/23/18 through 09/22/18 [07/05/2018 3:46:50 PM - SHAN STOREY] Patient initiated interrogation received on 07/01 and reviewed today for unknown reason.Device function appears normal. Presenting EGM shows AP - LUSTER APPLICATOR @ 80's bpm (07/01 @ 2205). Events [...] care to Dr. Melissa Sainz at [facility] in [place], [place]. Will facilitate the transfer of the patients remote monitoring. Results routed to Dr. Riley for review and signature. DB. [06/24/2018 10:32:09 AM - MARIELOS CHAMORRO] Please see scanned data sheets for further review. Scheduled Carelink transmission received for dual chamber ICD. Device function appears appropriate. Presenting EGM shows AP-LUSTER APPLICATOR rate of 71 bpm. Battery longevity 7.5 [...] V-rate of ~200 bpm. Pt is currently LUSTER APPLICATOR - 99.3%. Thoracic Impedance trend is stable for this patient. Next remote scheduled for 3 mo[address] Results routed to Dr. Montiel, Tobias for signature and review. __ Performing Organization Address City/State/Zipcode Phone Number OTHER OUTSIDE LAB in this encounter Visit Diagnoses Diagnosis ICD (implantable cardioverter-defibrillator) in place
--- OUTSIDE RECORDS SUMMARY | 2018-07-15 18:51 | XMS REPORT ---
Author Author PROSPER NATH Organization [facility] Address [address] [place] [address] Care Team Providers Care Road Supervisor Of Engines Name Role Phone PROSPER NATH Unavailable PROBLEMS Type Condition ICD9-CM Code GMT72-UT Code Onset Dates Condition Status SNOMED Code Problem Prostatism N40.0 Active 53605657 Problem Dilated cardiomyopathy I42.0 Active 654420482 Problem PAF (paroxysmal atrial fibrillation) I48.0 Active 601744437 Problem Acquired hypothyroidism E03.9 Active 669609610 Problem Essential hypertension I10 Active 10456753 ALLERGIES No Information ENCOUNTERS Encounter Location Date Diagnosis [place] [id number] [address] Apr, [facility] [address] [address] Apr, [facility] [address] [address] Apr, Acute midline thoracic back pain M54.6 ; Trigger point with back pain M54.9 and Muscle spasm M62.838 [place] [address] [place] [id number] [place] [address]- [address] Jan, [facility] [address] [place] [id number] [place] [address]998- 7959 Dec, Acquired hypothyroidism E03.9 and Prostatism N40.0 [facility] [address] [address]- [address] Dec, [facility] [address] [place] [id number] [place] [address] 10774- 8202 Nov, [facility] [address] [address]- 7861 February, Dilated cardiomyopathy I42.0 [facility] [address] [place] [address] [id number] [place] [address] 82605- 3214 February, Essential hypertension I10 [facility] [address] [place] [id number] [place] [address] 75961- 1334 Jan, [facility] [address] [place] [id number] [place] [address] 45796- 4262 Nov, Acquired hypothyroidism E03.9 [facility] [address] [id number] [place] [address] 51988- 3696 Nov, [facility] [address] [address]- [address]26 Nov, Hypertension I10 [facility] [address] [place] [id number] [place] [address] 06771- 2371 Aug, Lipoma of neck D17.0 [facility] [address] [place] [id number] [place] [address] 85396- 6499 Aug, Skin tag L91.8 [facility] [address] [place] [id number] [place] [address] 70409- 9093 Aug, Acquired hypothyroidism E03.9 and Skin lesions L98.9 [facility] [address] [place] [id number] [place] [address] 64173- 9120 May, Acquired hypothyroidism E03.9 [facility] [id number] [place] [address] 66361- 9346 May, Acquired hypothyroidism E03.9 ; PAF (paroxysmal atrial fibrillation) I48.0 and Essential hypertension I10 [facility] [address] [place] [id number] [place] [address] 49452- 7308 May, Acquired hypothyroidism E03.9 ; Hypertension I10 and PAF ( paroxysmal atrial fibrillation) I48.0 [facility] [address] [place] [id number] [place] [address] 58854- 6388 Dec, Hypertension I10 [facility] [id number] [address] Aug, [facility] [address] [id number] [place] [address] 92191- 6100 Jul, [facility] [address] [address] May, [facility] [id number] [place] [address] 49082- 7151 May, [facility] [id number] [place] [address] 22086- 5568 May, Wide-complex tachycardia 427.1 ; Hypertension 401.9 ; PAF ( paroxysmal atrial fibrillation) 427.31 and Apnea, sleep 780.57 [facility] [id number] [address]- 6797 February, Tooth pain 525.9 [facility] [address] [place] [id number] [place] [address] 61908- 3183 February, [facility] [id number] [place] [address] 75588- 4800 Jan, [facility] [address] [place] [id number] [place] [address] 00173- 7182 Jan, [facility] [id number], [place] [address] Dec, [facility] [id number] [place] [address]- 3411 Dec, [facility] [id number] [address]- 68[address] Nov, [facility] [address] [place] [id number] [place] [address] 70459- 0823 Nov, [facility] [address] [place] [address]- 1382 Nov, [facility] [address] [place] [id number] [place] [address] 94310- 5879 Nov, [facility] [place] [facility] [address] [id number] [place] [address]- 9595 Nov, [facility] [place] [facility] [address] [id number] [place] [address] Nov, [facility] [place] [facility] [address] [facility] [id number] [place] [address]- 5557 15 Oct, 2014 [facility] [place] [facility] [address] [id number] [place] [address]- 0706 15 Oct, 2014 [facility] [place] [facility] [address] [id number] [place] [address]- 1734 Sep, [facility] [place] [facility] [address] [id number] [place] [address]- 4589 Sep, [facility] [place] [facility] [address] [facility] [id number] [place] [address]- 2030 Sep, [facility] [place] [facility] [address] [facility] [id number] [place] [address]- 0211 Sep, [facility] [place] [facility] [address] [facility]] [id number] [place] [address]- 9004 Sep, [facility] [place] [facility] [address] [facility] [id number] [place] [address]- 0352 Sep, [facility] [place] [facility] [address] [facility] [id number], [place] [address]- 9488 Jul, [facility] [place] [facility] [address] [id number], [place] [address]- 7017 Jul, [facility] [place] [facility] [address] [id number], [place] [address]- 4039 Jul, [facility] [place] [facility] [address] [facility] [id number], [place] [address]- 6687 Jul, [facility] [place] [facility] [address] [facility] [id number], [place] [address]- 0297 Jul, [facility] [place] [facility] [address] [id number] [place] [address]- 8078 Jul, [facility] [place] [facility] [address] [id number] [place] [address]- 6012 Jun, [facility] [place] [facility] [address] [id number] [place] [address]- 3446 Jun, [facility] [place] [facility] [address] [id number] [place] [address]- 1846 Jun, [facility] [place] [facility] [address] [id number] [place] [address]- 3293 May, [facility] [place] [facility] [address] [id number] [place] [address]- 7785 May, [facility] [place] [facility] [address] [id number] [place] [address]- 0461 May, [facility] [place] [facility] [address] [id number] [place] [address]- 7270 May, [facility] [place] [facility] [address] [id number] [place] [address]- 9016 May, [facility] [place] [facility] [address] [id number] [place] [address]- 5682 May, [facility] [place] [facility] [address] [id number] [place] [address]- 6905 Apr, [facility] [place] [facility] [address] [id number] [place] [address]- 8110 Apr, [facility] [place] [facility] [address] [id number] [place] [address]- 6336 Apr, [facility] [place] [facility] [address] [id number] [place] [address]- 3347 Apr, [facility] [place] [facility] [address] [id number] [place] [address]- 8267 Apr, [facility] [place] [facility] [address] [id number] [place] [address]- 8056 Apr, [facility] [place] [facility] [address] [id number] [place] [address]- 4008 Mar, [facility] [place] [facility] [address] [id number] [place] [address]- 7264 Mar, [facility] [place] [facility] [address] [id number] [place] [address]- 4435 Mar, [facility] [place] [facility] [address] [id number] [place] [address]- 3419 Mar, [facility] [place] [facility] [address] [id number] [place] [address]- 5604 Mar, [facility] [place] [facility] [address] [id number] [place] [address]- 6791 Mar, [facility] [place] [facility] [address] [id number] [place] [address]- 5660 Mar, [facility] [place] [facility] [address] [id number] [place] [address]- 3876 February, [facility] [place] [facility] [address] [id number] [place] [address]- 7319 February, [facility] [place] [facility] [address] [id number] [place] [address]- 8842 February, [facility] [place] [facility] [address] [id number] [place] [address]- 1437 February, [facility] [place] [facility] [address] [id number] [place] [address]- 5082 February, [facility] [place] [facility] [address] [id number] [place] [address]- 4240 February, [facility] [place] [facility] [address] [id number] [place] [address]- 0908 Jan, [facility] [place] [facility] [address] [id number] [place] [address]- 8101 Jan, [facility] [place] [facility] [address] [id number] [place] [address]- 6545 Jan, [facility] [place] [facility] [address] [id number] [place] [address]- 5896 28 Jan, 2014 [facility] [place] [facility] [address] [id number] [place] [address]- 0069 Jan, [facility] [place] [facility] [address] [id number] [place] [address]- 1064 Jan, [facility] [place] [facility] [address] [id number] [place] [address]- 0573 Jan, [facility] [place] [facility] [address] [id number] [place] [address]- 0156 Jan, [facility] [place] [facility] [address] [id number] [place] [address]- 9545 Jan, [facility] [place] [facility] [address] [id number] [place] [address]- 8280 Jan, [facility] [place] [facility] [address] [id number] [place] [address]- 8331 Nov, [facility] [place] [facility] [address] [id number] [place] [address]- 1342 Nov, [facility] [place] [facility] [address] [id number] [place] [address]- 1159 Nov, [facility] [place] [facility] [address] [id number] [place] [address]- 9821 Nov, [facility] [place] [facility] [address] [id number] [place] [address]- 9047 Oct, [facility] [place] [facility] [address] [id number] [place] [address]- 6439 Oct, [facility] [place] [facility] [address] [id number] [place] [address]- 1994 Oct, [facility] [place] [facility] [address] [id number] [place] [address]- 7405 Aug, [facility] [address] [id number] [place] [address]- 0824 Aug, [facility] [place] [facility] [address] [id number] [place] [address]- 4906 Jun, [facility] [address] [id number] [place] [address]- 0536 February, [facility] [place] [facility] [address] [id number] [place] [address]- 4176 February, [facility] [address] [id number] [place] [address]- 9501 Dec, [facility] [place] [facility] [address] [id number] [place] [address]- 6786 15 Nov, 2012 [facility] [place] [facility] [address] [id number] [place] [address]- 6776 08 Nov, 2012 [facility] [place] [facility] [address] [id number] [place] [address]- 9974 08 Nov, 2012 [facility] [place] [facility] [address] [id number] [place] [address]- 1428 07 Nov, 2012 [facility] [place] [facility] [address] [id number] [place] [address]- 8856 05 Nov, 2012 [facility] [place] [facility] [address] [id number] [place] [address]- 5006 Oct, [facility] [place] [facility] [address] [id number], [place] [address]- 9406 Oct, [facility] [place] [facility] [address] [id number] [place] [address]- 8546 Aug, [facility] [place] [facility] [address] [id number] [place] [address]- 0126 Aug, [facility] [place] [facility] [address] [id number] [place] [address]- 8026 Oct, [facility] [place] [facility] [address] [facility] [id number] [place] [address]- 7578 Apr, [facility] [address] [facility]] [id number] [place] [address]- 0274 Sep, [facility] [address] [facility] [id number] [place] [address]- 0690 Jan, IMMUNIZATIONS No Known Immunizations SOCIAL HISTORY Never Assessed REASON FOR VISIT Medication question PLAN OF CARE VITAL SIGNS MEDICATIONS Medication Instructions Dosage Frequency Start Date End Date Duration Status Chlorzoxazone 375 MG Orally Three times a day as needed for muscle spasm 1 tablet with food Apr, Apr, 07 days Active RESULTS No Results PROCEDURES No Known procedures INSTRUCTIONS MEDICATIONS ADMINISTERED No Known Medications MEDICAL (GENERAL) HISTORY Type Description Date Medical History hypertension Medical History Arthritis Medical History Hypothyroidism Medical History Sleep apnea Surgical History cardiac pacemaker 02/2017 Surgical History heart cath Hospitalization History surgeries only
--- OUTSIDE RECORDS SUMMARY | 2018-07-15 18:51 | XMS REPORT ---
Author Author PROSPER NATH Organization [facility] Address [address] [place] [address] Care Team Providers Care Quality Control Specialist Name Role Phone PROSPER NATH Unavailable PROBLEMS Type Condition ICD9-CM Code OZE20-XU Code Onset Dates Condition Status SNOMED Code Problem Prostatism N40.0 Active 80715908 Problem Dilated cardiomyopathy I42.0 Active 044552261 Problem PAF (paroxysmal atrial fibrillation) I48.0 Active 068328458 Problem Acquired hypothyroidism E03.9 Active 536614482 Problem Essential hypertension I10 Active [id number] ALLERGIES No Known Allergies ENCOUNTERS Encounter Location Date Diagnosis [place] [id number] [address] Apr, [facility] [address] [address] Apr, [facility] [address] [address] Apr, Acute midline thoracic back pain M54.6 ; Trigger point with back pain M54.9 and Muscle spasm M62.838 [place] [address] [place] [id number] [place] [address]- [address] Jan, [facility] [address] [address] Dec, Acquired hypothyroidism E03.9 and Prostatism N40.0 [facility] [address] [address]- [address] Dec, [facility] [address] [address]- [address] Nov, [facility] [address] [address]- [address] February, Dilated cardiomyopathy I42.0 [facility] [address] [place] [id number] [place] [address]- 5201 February, Essential hypertension I10 [facility] [address] [place] [id number] [place] [address]- 6077 Jan, [facility] [address] [place] [id number] [place] [address]185- 3348 Nov, Acquired hypothyroidism E03.9 [facility] [address] [place] [id number] [place] [address] 74196- 0263 Nov, [facility] [address] [address]- [address]604 Nov, Hypertension I10 [facility] [address] [place] [id number] [place] [address] 56859- 6625 Aug, Lipoma of neck D17.0 [facility] [address] [place] [id number] [place] [address] 99784- 8722 Aug, Skin tag L91.8 [facility] [address] [place] [id number] [place] [address]39- 8189 Aug, Acquired hypothyroidism E03.9 and Skin lesions L98.9 [facility] [address] [place] [id number] [place] [address] 46632- 2081 May, Acquired hypothyroidism E03.9 [facility] [address] [place] [id number] [place] [address] 6[address]- 6087 May, Acquired hypothyroidism E03.9 ; PAF (paroxysmal atrial fibrillation) I48.0 and Essential hypertension I10 [facility] [address] [address]- [address] May, Acquired hypothyroidism E03.9 ; Hypertension I10 and PAF ( paroxysmal atrial fibrillation) I48.0 [facility] [address] [place] [id number] [place] [address] 98571- 2853 Dec, Hypertension I10 [facility] [address] [address] 9[address] Aug, [facility] [id number] [place] [address] 73246- 5942 Jul, [facility] [address], [place] [address] 350[address] May, [facility] [address] [place] [id number] [place] [address] 98620- 8151 May, [facility] [address] [place] [id number] [place] [address] 63589- 6861 May, Wide-complex tachycardia 427.1 ; Hypertension 401.9 ; PAF ( paroxysmal atrial fibrillation) 427.31 and Apnea, sleep 780.57 [facility] [id number] [address] 69[address] February, Tooth pain 525.9 [facility] [address] [place] [id number] [place] [address] 96925- 3589 February, [facility] [id number] [place] [address] 04554- 1018 Jan, [facility] [id number] [place] [address] 90030- 4043 Jan, [facility] [address], [place] [address]- 7079 Dec, [facility] [address] [place] [address]- 5272 Dec, [facility] [address], [place] [address]- 5493 Nov, [facility] [address] [place] [id number] [place] [address] 04808- 7336 Nov, [facility] [address], [place] [address]- 4553 Nov, [facility] [address] [place] [id number] [place] [address] 33694- 1398 Nov, [facility] [place] [facility] [address] [id number] [place] [address]- 0641 Nov, [facility] [place] [facility] [address] [id number] [place] [address] Nov, [facility] [place] [facility] [address] [facility] [id number] [place] [address]- 7933 15 Oct, 2014 [facility] [place] [facility] [address] [id number] [place] [address]- 6007 15 Oct, 2014 [facility] [place] [facility] [address] [id number] [place] [address]- 9206 Sep, [facility] [place] [facility] [address] [id number] [place] [address]- 3175 Sep, [facility] [place] [facility] [address] [facility] [id number], [place] [address]- 3637 Sep, [facility] [place] [facility] [address] [id number] [place] [address]- 2806 Sep, [facility] [place] [facility] [address] [facility] [id number] [place] [address]- 4175 Sep, [facility] [place] [facility] [address] [facility] [id number] [place] [address]- 4110 Sep, [facility] [place] [facility] [address] [facility] [id number], [place] [address]- 3990 Jul, [facility] [place] [facility] [address] [id number], [place] [address]- 4979 Jul, [facility] [place] [facility] [address] [id number] [address] Jul, [facility] [place] [facility] [address] [facility] [id number] 2179 Jul, [facility] [place] [facility] [address] [facility] [id number] [address] Jul, [facility] [place] [facility] [address] [id number] [place] [address]- 3450 Jul, [facility] [place] [facility] [address] [id number] [facility] [address]- 2776 Jun, [facility] [place] [facility] [address] [id number] [place] [address]- 5446 Jun, [facility] [place] [facility] [address] [id number] [place] [address]- 2936 Jun, [facility] [place] [facility] [address] [id number] [place] [address]- 7685 May, [facility] [place] [facility] [address] [id number] [place] [address]- 3768 May, [facility] [place] [facility] [address] [id number] [place] [address]- 4131 May, [facility] [place] [facility] [address] [id number] [place] [address]- 4547 May, [facility] [place] [facility] [address] [id number] [place] [address]- 1934 May, [facility] [place] [facility] [address] [id number] [place] [address]- 7074 May, [facility] [place] [facility] [address] [id number] [place] [address]- 6502 Apr, [facility] [place] [facility] [address] [id number] [place] [address]- 0630 Apr, [facility] [place] [facility] [address] [id number] [place] [address]- 4906 Apr, [facility] [place] [facility] [address] [id number] [place] [address]- 8473 Apr, [facility] [place] [facility] [address] [id number] [place] [address]- 5198 Apr, [facility] [place] [facility] [address] [id number] [place] [address]- 7243 Apr, [facility] [place] [facility] [address] [id number] [place] [address]- 4554 Mar, [facility] [place] [facility] [address] [id number] [place] [address]- 3775 Mar, [facility] [place] [facility] [address] [id number] [place] [address]- 8142 Mar, [facility] [place] [facility] [address] [id number] [place] [address]- 7868 Mar, [facility] [place] [facility] [address] [id number] [place] [address]- 5207 Mar, [facility] [place] [facility] [address] [id number] [place] [address]- 3497 Mar, [facility] [place] [facility] [address] [id number] [place] [address]- 8464 Mar, [facility] [place] [facility] [address] [id number] [place] [address]- 9855 February, [facility] [place] [facility] [address] [id number] [place] [address]- 6620 February, [facility] [place] [facility] [address] [id number] [place] [address]- 7166 February, [facility] [place] [facility] [address] [id number] [place] [address]- 5877 February, [facility] [place] [facility] [address] [id number], [place] [address]- 7704 February, [facility] [place] [facility] [address] [id number] [place] [address]- 5093 February, [facility] [place] [facility] [address] [id number] [place] [address]- 7096 Jan, [facility] [place] [facility] [address] [id number] [place] [address]- 4767 Jan, [facility] [place] [facility] [address] [id number] [place] [address]- 1800 Jan, [facility] [place] [facility] [address] [id number] [place] [address]- 3840 Jan, [facility] [place] [facility] [address] [id number] [place] [address]- 9272 Jan, [facility] [place] [facility] [address] [id number] [place] [address]- 5098 Jan, [facility] [place] [facility] [address] [id number] [place] [address]- 6954 Jan, [facility] [place] [facility] [address] [id number] [place] [address]- 7418 Jan, [facility] [place] [facility] [address] [id number] [place] [address]- 9171 Jan, [facility] [place] [facility] [address] [id number] [place] [address]- 8774 Jan, [facility] [place] [facility] [address] [id number] [place] [address]- 4170 Nov, [facility] [place] [facility] [address] [id number] [place] [address]- 4357 Nov, [facility] [place] [facility] [address] [id number] [place] [address]- 1543 Nov, [facility] [place] [facility] [address] [id number] [place] [address]- 5287 Nov, [facility] [place] [facility] [address] [id number] [place] [address]- 4378 Oct, [facility] [place] [facility] [address] [id number] [place] [address]653 Oct, [facility] [place] [facility] [address] [id number] [place] [address]- 0421 Oct, [facility] [place] [facility] [address] [id number] [place] [address]- 9281 Aug, [facility] [address] [id number] [place] [address]- 4107 Aug, [facility] [address] [id number] [place] [address]- 7456 Jun, [facility] [address] [id number] [place] [address]- 9086 February, [facility] [place] [facility] [address] [id number] [place] [address]- 1536 February, [facility] [address] [id number] [place] [address]- 3637 Dec, [facility] [place] [facility] [address] [id number] [place] [address]- 5836 15 Nov, 2012 [facility] [address] [id number] [place] [address]- 3826 08 Nov, 2012 [facility] [address] [id number] [place] [address]- 2751 Nov, [facility] [address] [id number] [place] [address]- 4159 Nov, [facility] [address] [id number] [place] [address]- 9936 05 Nov, 2012 [facility] [address] [id number] [place] [address]- 5806 Oct, [facility] [place] [facility] [address] [id number], [place] [address]- 1446 Oct, [facility] [place] [facility] [address] [id number] [place] [address]- 7166 Aug, [facility] [place] [facility] [address] [id number] [place] [address]- 6786 Aug, [facility] [place] [facility] [address] [id number] [place] [address]- 8746 Oct, [facility] [place] [facility] [address] [facility] [id number] [place] [address]- 7545 Apr, [facility] [address] [facility] [id number] [place] [address]- 9990 Sep, [facility] [address] [facility] [id number] [place] [address]- 4672 Jan, IMMUNIZATIONS No Known Immunizations SOCIAL HISTORY Never Assessed REASON FOR VISIT Pain (acute)(back) with swelling-[place] PLAN OF CARE Activity Details Follow Up prn Reason:back pain Future/Pending Procedure TRIGGER POINT INJ/1-2 MUS VITAL SIGNS Height 66 in 2018-04-30 Weight 219.0 lbs 2018-04-30 Temperature 98.0 degrees Fahrenheit 2018-04-30 Heart Rate 86 bpm 2018-04-30 Respiratory Rate 18 2018-04-30 BMI 35.34 kg/m2 2018-04-30 Blood pressure systolic 108 mmHg 2018-04-30 Blood pressure diastolic 76 mmHg 2018-04-30 MEDICATIONS Medication Instructions Dosage Frequency Start Date End Date Duration Status Hydrochlorothiazide 12.5 MG TAKE ONE CAPSULE BY MOUTH DAILY 90 Not-Taking Levothyroxine Sodium 112 MCG Orally Once a day 1 tablet 24h 30 Active Losartan Potassium 50 MG Orally Once a day TAKE ONE TABLET BY MOUTH DAILY 24h 30 Not-Taking Flomax 0.4 MG Orally Once a day 1 capsule 24h Jan, Jun, 30 day(s) Active Eliquis 5 mg 1 Tablet by Oral route 2 times per day Sep, Active Multivitamin Adult - Active Toprol XL 50 MG Orally Once a day 1 tablet 24h Active RESULTS No Results PROCEDURES Procedure Date Ordered Result Body Site INJECT TRIGGER POINT, 1 OR 2 April 30, 2018 INSTRUCTIONS MEDICATIONS ADMINISTERED No Known Medications MEDICAL (GENERAL) HISTORY Type Description Date Medical History hypertension Medical History Arthritis Medical History Hypothyroidism Medical History Sleep apnea Surgical History cardiac pacemaker 02/2017 Surgical History heart cath Hospitalization History surgeries only
--- OUTSIDE RECORDS SUMMARY | 2018-07-15 18:51 | XMS REPORT ---
Author Author KAYCEE RESENDIZ Organization [facility] Address [address] [place] [address] Care Team Providers Care Blankmaker Name Role Phone KAYCEE RESENDIZ Unavailable PROBLEMS Type Condition ICD9-CM Code HLQ43-LE Code Onset Dates Condition Status SNOMED Code Problem Prostatism N40.0 Active 56918159 Problem Dilated cardiomyopathy I42.0 Active 321856045 Problem PAF (paroxysmal atrial fibrillation) I48.0 Active 498002991 Problem Acquired hypothyroidism E03.9 Active 284622558 Problem Essential hypertension I10 Active 36662174 ALLERGIES No Information ENCOUNTERS Encounter Location Date Diagnosis [place] [id number] [address] Apr, [facility] [address] [address] Apr, [place] [address] [address] Apr, Acute midline thoracic back pain M54.6 ; Trigger point with back pain M54.9 and Muscle spasm M62.838 [place] [address] [address] Jan, [facility] [address] [address] Dec, Acquired hypothyroidism E03.9 and Prostatism N40.0 [facility] [address] [address] Dec, [place] [address] [address] Nov, [facility] [address] [address] February, Dilated cardiomyopathy I42.0 [facility] [address] [place] [id number] [place] [address]- 244[address] February, Essential hypertension I10 [facility] [address] [place] [id number] [place] [address]- 17[address] Jan, [facility] [address] [place] [id number] [place] [address] 8[address]92- 1108 Nov, Acquired hypothyroidism E03.9 [facility] [address] [place] [id number] [place] [address]- [address] Nov, [facility] [address] [address]- [address] Nov, Hypertension I10 [facility] [address] [place] [id number] [place] [address]- [address] Aug, Lipoma of neck D17.0 [facility] [address] [place] [id number] [place] [address] 6[address]31- 7123 Aug, Skin tag L91.8 [facility] [address] [place] [id number] [place] [address] 61755- 3733 Aug, Acquired hypothyroidism E03.9 and Skin lesions L98.9 [facility] [address] [place] [id number] [place] [address]22- 5582 May, Acquired hypothyroidism E03.9 [facility] [address] [place] [id number] [place] [address] 20056- 7103 May, Acquired hypothyroidism E03.9 ; PAF (paroxysmal atrial fibrillation) I48.0 and Essential hypertension I10 [facility] [address] [address]- [address] May, Acquired hypothyroidism E03.9 ; Hypertension I10 and PAF ( paroxysmal atrial fibrillation) I48.0 [facility] [address] [place] [id number] [place] [address] 80470- 0857 Dec, Hypertension I10 [facility] [address] [address] Aug, [facility] [id number] [place] [address] 85755- 2804 Jul, [facility] [address] [address] May, [facility] [address] [place] [id number] [place] [address] 13524- 5538 May, [facility] [address] [place] [id number] [place] [address] 14193- 0750 May, Wide-complex tachycardia 427.1 ; Hypertension 401.9 ; PAF ( paroxysmal atrial fibrillation) 427.31 and Apnea, sleep 780.57 [facility] [address] [place] [id number] [address] February, Tooth pain 525.9 [facility] [address] [place] [id number] [place] [address] 9[address]13- 8771 February, [facility] [id number] [place] [address] 31894- 1375 Jan, [facility] [id number] [place] [address] 95221- 6162 Jan, [facility] [address] [address] Dec, [facility] [address] [address] 37[address] Dec, [facility] [address] [address] 150[address] Nov, [facility] [address] [place] [id number] [place] [address] 73885- 1790 Nov, [facility] [address] [address]- 8101 Nov, [facility] [address] [place] [id number] [place] [address] 66652- 2064 Nov, [facility] [place] [facility] [address] [id number] [place] [address]- 3702 Nov, [facility] [place] [facility] [address] [id number] [place] [address] Nov, [facility] [place] [facility] [address] [facility] [id number] [place] [address]- 2922 15 Oct, 2014 [facility] [place] [facility] [address] [id number] [place] [address]- 3101 15 Oct, 2014 [facility] [place] [facility] [address] [id number] [place] [address]- 1842 Sep, [facility] [place] [facility] [address] [id number] [place] [address]- 3936 Sep, [facility] [place] [facility] [address] [facility] [id number] [address]- 9196 Sep, [facility] [place] [facility] [address] [id number] [place] [address]- 5249 Sep, [facility] [place] [facility] [address] [facility] [id number] [place] [address]- 7527 Sep, [facility] [place] [facility] [address] [facility] [id number] [place] [address]- 7891 Sep, [facility] [place] [facility] [address] [facility] [id number] [address]- 5086 Jul, [facility] [place] [facility] [address] [id number], [place] [address]- 6421 Jul, [facility] [place] [facility] [address] [id number] [address] Jul, [facility] [place] [facility] [address] [facility] [id number] [address] Jul, [facility] [place] [facility] [address] [facility] [id number] [address] Jul, [facility] [place] [facility] [address] [id number] [place] [address]- 2669 Jul, [facility] [place] [facility] [address] [id number] [facility] [place] [address]- 2764 Jun, [facility] [place] [facility] [address] [id number] [place] [address]- 5176 Jun, [facility] [place] [facility] [address] [id number] [place] [address]- 0246 Jun, [facility] [place] [facility] [address] [id number] [place] [address]- 2470 May, [facility] [place] [facility] [address] [id number] [place] [address]- 2699 May, [facility] [place] [facility] [address] [id number] [place] [address]- 4029 May, [facility] [place] [facility] [address] [id number] [place] [address]- 4582 May, [facility] [place] [facility] [address] [id number] [place] [address]- 8936 May, [facility] [place] [facility] [address] [id number] [place] [address]- 8292 May, [facility] [place] [facility] [address] [id number] [place] [address]- 6078 Apr, [facility] [place] [facility] [address] [id number] [place] [address]- 1707 Apr, [facility] [place] [facility] [address] [id number] [place] [address]- 3251 Apr, [facility] [place] [facility] [address] [id number] [place] [address]- 0324 Apr, [facility] [place] [facility] [address] [id number] [place] [address]- 0921 Apr, [facility] [place] [facility] [address] [id number] [place] [address]- 3330 Apr, [facility] [place] [facility] [address] [id number] [place] [address]- 4159 Mar, [facility] [place] [facility] [address] [id number] [place] [address]- 7318 Mar, [facility] [place] [facility] [address] [id number] [place] [address]- 0964 Mar, [facility] [place] [facility] [address] [id number] [place] [address]- 1538 Mar, [facility] [place] [facility] [address] [id number] [place] [address]- 8552 Mar, [facility] [place] [facility] [address] [id number] [place] [address]- 8656 Mar, [facility] [place] [facility] [address] [id number] [place] [address]- 8573 Mar, [facility] [place] [facility] [address] [id number] [place] [address]- 4981 February, [facility] [place] [facility] [address] [id number] [place] [address]- 9453 February, [facility] [place] [facility] [address] [id number] [place] [address]- 3219 February, [facility] [place] [facility] [address] [id number] [place] [address]- 9601 February, [facility] [place] [facility] [address] [id number], [place] [address]- 4323 February, [facility] [place] [facility] [address] [id number] [place] [address]- 3897 February, [facility] [place] [facility] [address] [id number] [place] [address]- 8986 Jan, [facility] [place] [facility] [address] [id number] [place] [address]- 6224 Jan, [facility] [place] [facility] [address] [id number] [place] [address]- 9815 Jan, [facility] [place] [facility] [address] [id number] [place] [address]- 6571 Jan, [facility] [place] [facility] [address] [id number] [place] [address]- 1888 Jan, [facility] [place] [facility] [address] [id number] [place] [address]- 8450 Jan, [facility] [place] [facility] [address] [id number] [place] [address]- 7235 Jan, [facility] [place] [facility] [address] [id number] [place] [address]- 3693 Jan, [facility] [place] [facility] [address] [id number] [place] [address]- 2365 Jan, [facility] [place] [facility] [address] [id number] [place] [address]- 2508 Jan, [facility] [place] [facility] [address] [id number] [place] [address]- 4278 Nov, [facility] [place] [facility] [address] [id number] [place] [address]- 9662 Nov, [facility] [place] [facility] [address] [id number] [place] [address]- 0573 Nov, [facility] [place] [facility] [address] [id number] [place] [address]- 4811 Nov, [facility] [place] [facility] [address] [id number] [place] [address]- 4948 Oct, [facility] [place] [facility] [address] [id number] [place] [address] Oct, [facility] [place] [facility] [address] [id number] [place] [address]- 0855 Oct, [facility] [place] [facility] [address] [id number] [place] [address]- 6563 Aug, [facility] [address] [id number] [place] [address]- 3401 Aug, [facility] [address] [id number] [place] [address]- 2366 Jun, [facility] [address] [id number] [place] [address]- 2956 February, [facility] [place] [facility] [address] [id number] [place] [address]- 2026 February, [facility] [address] [id number] [place] [address]- 5775 Dec, [facility] [place] [facility] [address] [id number] [place] [address]- 6546 15 Nov, 2012 [facility] [address] [id number] [place] [address]- 1216 08 Nov, 2012 [facility] [address] [id number] [place] [address]- 3716 Nov, [facility] [address] [id number] [place] [address]- 2880 Nov, [facility] [address] [id number] [place] [address]- 5886 05 Nov, 2012 [facility] [address] [id number] [place] [address]- 4976 Oct, [facility] [place] [facility] [address] [id number], [place] [address]- 2686 Oct, [facility] [place] [facility] [address] [id number] [place] [address]- 7906 Aug, [facility] [place] [facility] [address] [id number] [place] [address]- 1056 Aug, [facility] [place] [facility] [address] [id number] [place] [address]- 9636 Oct, [facility] [place] [facility] [address] [facility] [id number] [place] [address]- 4746 Apr, [facility] [address] [facility] [id number] [place] [address]- 7483 Sep, [facility] [address] [facility] [id number] [place] [address]- 3934 Jan, IMMUNIZATIONS No Known Immunizations SOCIAL HISTORY Never Assessed REASON FOR VISIT PLAN OF CARE VITAL SIGNS MEDICATIONS Medication Instructions Dosage Frequency Start Date End Date Duration Status Levothyroxine Sodium 112 MCG Orally Once a day 1 tablet 24h 30 Active Flomax 0.4 MG Orally Once a day 1 capsule 24h Jan, Jun, 30 day(s) Active RESULTS No Results PROCEDURES No Known procedures INSTRUCTIONS MEDICATIONS ADMINISTERED No Known Medications MEDICAL (GENERAL) HISTORY Type Description Date Medical History hypertension Medical History Arthritis Medical History Hypothyroidism Medical History Sleep apnea Surgical History cardiac pacemaker 02/2017 Surgical History heart cath Hospitalization History surgeries only
--- OUTSIDE RECORDS SUMMARY | 2018-07-15 18:52 | XMS REPORT ---
Author Author ANGIE KENNEDY Organization [employer] Address Unknown Phone Unavailable Care Team Providers Care Engine Service Repairer Name Role Phone ANGIE KENNEDY CP Unavailable Allergies No Known Allergies Problems [...] Other malaise and fatigue 780.79 Active Assessment PAF (paroxysmal atrial fibrillation) I48.0 Active Assessment Acquired hypothyroidism E03.9 Active Problem Unspecified hypothyroidism 244.9 Active Assessment Essential hypertension I10 Active Problem Unspecified site of sprain and strain 848.9 Active Medications No Known Medications Procedures Procedure Coding System Code Date COMPREHEN METABOLIC PANEL CPT-4 92707 Jun 10, 2016 LIPID PANEL CPT-4 69184 Jun 10, 2016 COMPLETE CBC W/AUTO DIFF WBC CPT-4 00166 Jun 10, 2016 ASSAY OF FREE THYROXINE CPT-4 12177 Jun 10, 2016 ASSAY THYROID STIM HORMONE CPT-4 87352 Jun 10, 2016 Results No Known Results Summary Purpose [employer] Submission
--- OUTSIDE RECORDS SUMMARY | 2018-07-15 18:52 | XMS REPORT ---
Author Author KAYCEE RESENDIZ [facility] Address [address] [place] [address] Care Team Providers Care Resident Intern Name Role Phone KAYCEE RESENDIZ Unavailable PROBLEMS Type Condition ICD9-CM Code WGO09-IV Code Onset Dates Condition Status SNOMED Code Problem Dilated cardiomyopathy I42.0 Active 194162098 Problem Acquired hypothyroidism E03.9 Active 252056092 Problem Essential hypertension I10 Active 04779329 Problem PAF (paroxysmal atrial fibrillation) I48.0 Active 830840612 ALLERGIES No Information SOCIAL HISTORY Never Assessed PLAN OF CARE VITAL SIGNS MEDICATIONS No Known Medications RESULTS No Results PROCEDURES No Known procedures IMMUNIZATIONS No Known Immunizations MEDICAL (GENERAL) HISTORY Type Description Date Medical History hypertension Medical History Arthritis Medical History Hypothyroidism Medical History Sleep apnea Surgical History cardiac pacemaker 02/2017 Surgical History heart cath Hospitalization History surgeries only
--- OUTSIDE RECORDS SUMMARY | 2018-07-15 18:52 | XMS REPORT ---
Author Author KAYCEE RESENDIZ [facility] Address [address] [place] [address] Care Team Providers Care Fieldwork Coordinator Name Role Phone KAYCEE RESENDIZ Unavailable PROBLEMS Type Condition ICD9-CM Code NHP25-AD Code Onset Dates Condition Status SNOMED Code Problem Dilated cardiomyopathy I42.0 Active 325978206 Problem Acquired hypothyroidism E03.9 Active 439496005 Problem Essential hypertension I10 Active 53062694 Problem PAF (paroxysmal atrial fibrillation) I48.0 Active 641261289 ALLERGIES No Information SOCIAL HISTORY Never Assessed PLAN OF CARE VITAL SIGNS MEDICATIONS No Known Medications RESULTS Name Result Date Reference Range MAGNESIUM, SERUM 2016-12-16 Magnesium, Serum 2.1 1.6-2.3 TSH 2016-12-16 TSH 6.470 0.450-4.500 ESR/SED RATE 2016-12-16 Sedimentation Rate-Westergren 5 0-30 CMP 2016-12-16 Glucose, Serum 106 65-99 BUN 21 6-24 Creatinine, Serum 1.18 0.76-1.27 eGFR If NonAfricn Am 69 >59 eGFR If Africn Am 80 >59 BUN/Creatinine Ratio 18 9-20 Sodium, Serum 144 134-144 Potassium, Serum 4.0 3.5-5.2 Chloride, Serum 104 96-106 Carbon Dioxide, Total 27 18-29 Calcium, Serum 9.7 8.7-10.2 Protein, Total, Serum 7.1 6.0-8.5 Albumin, Serum 4.6 3.5-5.5 Globulin, Total 2.5 1.5-4.5 A/G Ratio 1.8 1.1-2.5 Bilirubin, Total 0.8 0.0-1.2 Alkaline Phosphatase, S 64 39-117 AST (SGOT) 27 0-40 ALT (SGPT) 37 0-44 CBC w/ MANUAL DIFF 2016-12-16 WBC 6.8 3.4-10.8 RBC 4.55 4.14-5.80 Hemoglobin 14.5 12.6-17.7 Hematocrit 42.9 37.5-51.0 MCV 94 79-97 MCH 31.9 26.6-33.0 MCHC 33.8 31.5-35.7 RDW 13.3 12.3-15.4 Platelets 233 150-379 Neutrophils 63 Lymphs 24 Monocytes 10 Eos 2 Basos 1 Neutrophils Absolute 4.3 1.4-7.0 Lymphs (Absolute) 1.6 0.7-3.1 Monocytes(Absolute) 0.7 0.1-0.9 Eos (Absolute Value) 0.1 0.0-0.4 Baso(Absolute) 0.1 0.0-0.2 Differential Comment Note: RBC Comment Note: Normal Platelet Comment Note: Adequate PROCEDURES Procedure Date Ordered Result Body Site ASSAY THYROID STIM HORMONE Dec 16, 2016 COMPREHEN METABOLIC PANEL Dec 16, 2016 RBC SED RATE, AUTOMATED Dec 16, 2016 ASSAY OF MAGNESIUM Dec 16, 2016 VENIPUNCT, ROUTINE* Dec 16, 2016 IMMUNIZATIONS No Known Immunizations MEDICAL (GENERAL) HISTORY Type Description Date Medical History hypertension Medical History Arthritis Medical History Hypothyroidism Medical History Sleep apnea Surgical History cardiac pacemaker 02/2017 Surgical History heart cath Hospitalization History surgeries only
--- OUTSIDE RECORDS SUMMARY | 2018-07-15 18:52 | XMS REPORT ---
Author Author KAYCEE RESENDIZ [facility] [employer] Address Unknown Phone Unavailable Care Team Providers Care Industrial Design Engineer Name Role Phone KAYCEE RESENDIZ CP Unavailable Allergies, Adverse Reactions, Alerts Substance Reaction Event Type N.K.D.A. Info Not Available Non Drug Allergy Problems Problem Type Condition Code Onset Dates Condition Status Problem PAF (paroxysmal atrial fibrillation) I48.0 Active Problem Essential hypertension I10 Active Problem Acquired hypothyroidism E03.9 Active Assessment Skin lesions L98.9 Active Problem Hypertension I10 Active Assessment Acquired hypothyroidism E03.9 Active Medications Medication Code System Code Instructions Start Date End Date Status Dosage Levothyroxine Sodium [facility] [address]-08 112 MCG Orally Once a day Jun 13, 2016 1 tablet on an empty stomach in the morning Losartan Potassium [facility] 15022545254 50 MG Orally Once a day TAKE ONE TABLET BY MOUTH DAILY Eliquis [facility] [address]-32 5 mg Oct 09, 2014 1 Tablet by Oral route 2 times per day Hydrochlorothiazide [facility] 63619279243 12.5 MG TAKE ONE CAPSULE BY MOUTH DAILY Coreg [facility] 00698440906 3.[address] Johnson 2 times a day 1 tablet Procedures Procedure Coding System Code Date VENIPUNCT, ROUTINE* CPT-4 17327 Sep 05, 2016 Office Visit, Est Pt., Level 2 CPT-4 67501 Sep 05, 2016 ASSAY THYROID STIM HORMONE CPT-4 51247 Sep 05, 2016 Vital Signs Date/Time: Sep 05, 2016 Cardiac Monitoring Heart Rate 76 bpm Weight 223.4 lbs Height 66 in BMI 36.05 Index Blood Pressure Diastolic 82 mmHg Blood Pressure Systolic 112 mmHg Results Name Result Date Reference Range Unit Abnormality Flag ROUTINE VENIPUNCTURE TSH ----TSH 4.120 [id number] 0.450-4.500 uIU/mL Summary Purpose [employer] Submission
--- OUTSIDE RECORDS SUMMARY | 2018-07-15 18:52 | XMS REPORT ---
Author Author NATALIE DOMINGUEZ [facility] Address [address] [place] [address] Care Team Providers Care Nurse Staff [facility] Name Role Phone NATALIE DOMINGUEZ Unavailable PROBLEMS Type Condition ICD9-CM Code FUC55-MY Code Onset Dates Condition Status SNOMED Code Problem Acquired hypothyroidism E03.9 Active 898129817 Problem PAF (paroxysmal atrial fibrillation) I48.0 Active 860361389 Assessment Lipoma of neck D17.0 Aug, Active 02382023 Problem Essential hypertension I10 Active 14548225 Problem Hypertension I10 Active 15532462 ALLERGIES Substance Reaction Event Type Date Status N.K.D.A. Unknown Non Drug Allergy Aug, Unknown SOCIAL HISTORY No smoking Hx information available PLAN OF CARE VITAL SIGNS Height 66 in 2016-09-23 Weight 224.8 lbs 2016-09-23 Heart Rate 78 bpm 2016-09-23 Respiratory Rate 20 2016-09-23 BMI 36.28 kg/m2 2016-09-23 Blood pressure systolic 114 mmHg 2016-09-23 Blood pressure diastolic 84 mmHg 2016-09-23 MEDICATIONS Medication Instructions Dosage Frequency Start Date End Date Duration Status Eliquis 5 mg 1 Tablet by Oral route 2 times per day Sep, Active Coreg 3.[address] Johnson 2 times a day 1 tablet 12h 30 Active Losartan Potassium 50 MG Orally Once a day TAKE ONE TABLET BY MOUTH DAILY 24h 30 Active Hydrochlorothiazide 12.5 MG TAKE ONE CAPSULE BY MOUTH DAILY 90 Active Levothyroxine Sodium 112 MCG TAKE ONE TABLET BY MOUTH ONCE DAILY IN THE MORNING ON AN EMPTY STOMACH (REPEAT LAB ON 09/08/16) 30 Active Multivitamin Adult - Active RESULTS No Results PROCEDURES Procedure Date Ordered Related Diagnosis Body Site Office Visit, Est Pt., Level 2 Sep 23, 2016 IMMUNIZATIONS No Known Immunizations
--- OUTSIDE RECORDS SUMMARY | 2018-07-15 18:52 | XMS REPORT ---
Author Author KAYCEE RESENDIZ [facility] Address [address] [place] [address] Care Team Providers Care Production Roustabout Name Role Phone KAYCEE RESENDIZ Unavailable PROBLEMS Type Condition ICD9-CM Code CZL64-RE Code Onset Dates Condition Status SNOMED Code Problem Dilated cardiomyopathy I42.0 Active 214946370 Problem Acquired hypothyroidism E03.9 Active 655377669 Problem Essential hypertension I10 Active 20043595 Problem PAF (paroxysmal atrial fibrillation) I48.0 Active 297557485 ALLERGIES No Information SOCIAL HISTORY Never Assessed PLAN OF CARE VITAL SIGNS MEDICATIONS Medication Instructions Dosage Frequency Start Date End Date Duration Status Levothyroxine Sodium 100 MCG Orally Once a day 1 tablet 24h 30 days Active RESULTS No Results PROCEDURES No Known procedures IMMUNIZATIONS No Known Immunizations MEDICAL (GENERAL) HISTORY Type Description Date Medical History hypertension Medical History Arthritis Medical History Hypothyroidism Medical History Sleep apnea Surgical History cardiac pacemaker 02/2017 Surgical History heart cath Hospitalization History surgeries only
--- OUTSIDE RECORDS SUMMARY | 2018-07-15 18:52 | XMS REPORT ---
Author Author KAYCEE RESENDIZ Organization [employer] Address Unknown Phone Unavailable Care Team Providers Care News Clipping Cutter Name Role Phone KAYCEE RESENDIZ CP Unavailable Allergies No Known Allergies Problems Problem Type Condition ICD-9 Code Onset Dates Condition Status Problem Unspecified hypothyroidism 244.9 Active Problem Unspecified disorders of bursae and tendons in shoulder region 726.10 Active Problem Impacted cerumen 380.4 Active Problem Other malaise and fatigue 780.79 Active Problem Unspecified arthropathy, site unspecified 716.90 Active Problem Unspecified site of sprain and strain 848.9 Active Problem Other heart block 426.6 Active Problem Pain in joint, shoulder region 719.41 Active Medications No Known Medications Results No Known Results Summary Purpose [employer] Submission
--- OUTSIDE RECORDS SUMMARY | 2018-07-15 18:52 | XMS REPORT ---
Author Author KAYCEE RESENDIZ Organization [facility] Address [address] [place] [address] Care Team Providers Care Cement Side Laster Name Role Phone KAYCEE RESENDIZ Unavailable PROBLEMS Type Condition ICD9-CM Code DPX84-TD Code Onset Dates Condition Status SNOMED Code Problem Prostatism N40.0 Active 97558846 Problem Dilated cardiomyopathy I42.0 Active 008726579 Problem PAF (paroxysmal atrial fibrillation) I48.0 Active 867911901 Problem Acquired hypothyroidism E03.9 Active 522681569 Problem Essential hypertension I10 Active 46339683 ALLERGIES No Known Allergies ENCOUNTERS Encounter Location Date Diagnosis [place] [address] [address] Apr, [facility] [address] [address] Apr, [place] [address] [address]- [address] Apr, Acute midline thoracic back pain M54.6 ; Trigger point with back pain M54.9 and Muscle spasm M62.838 [place] [address] [place] [id number] [place] [address]- 116[address] Jan, [facility] [address] [place] [id number] [place] [address] 38775- 7234 Dec, Acquired hypothyroidism E03.9 and Prostatism N40.0 [facility] [address] [address]- 3824 Dec, [place] [address] [address]- [address] Nov, [facility] [address] [address]- 5261 February, Dilated cardiomyopathy I42.0 [facility] [address] [place] [id number] [place] [address]11- 3944 February, Essential hypertension I10 [facility] [address] [place] [id number] [place] [address] 73362- 7479 Jan, [facility] [address] [place] [id number] [place] [address] 95037- 2605 Nov, Acquired hypothyroidism E03.9 [facility] [address] [place] [id number] [place] [address] 15992- 8470 Nov, [facility] [address] [address]- 6458 Nov, Hypertension I10 [facility] [address] [place] [id number] [place] [address] 88286- 0664 Aug, Lipoma of neck D17.0 [facility] [address] [place] [id number] [place] [address] 27985- 2189 Aug, Skin tag L91.8 [facility] [address] [place] [id number] [place] [address] 58547- 1038 Aug, Acquired hypothyroidism E03.9 and Skin lesions L98.9 [facility] [address] [place] [id number] [place] [address] 74994- 2670 May, Acquired hypothyroidism E03.9 [facility] [address] [place] [id number] [place] [address] 44198- 9966 May, Acquired hypothyroidism E03.9 ; PAF (paroxysmal atrial fibrillation) I48.0 and Essential hypertension I10 [facility] [address] [place] [id number] [place] [address] 70541- 3059 May, Acquired hypothyroidism E03.9 ; Hypertension I10 and PAF ( paroxysmal atrial fibrillation) I48.0 [facility] [address] [place] [id number] [place] [address] 14494- 5988 Dec, Hypertension I10 [place] [address] [address] Aug, [facility] [id number] [place] [address] 10100- 8123 Jul, [facility] [address] [address] 7615 May, [facility] [address] [place] [id number] [place] [address] 10609- 9436 May, [facility] [id number] [place] [address] 87711- 6044 May, Wide-complex tachycardia 427.1 ; Hypertension 401.9 ; PAF ( paroxysmal atrial fibrillation) 427.31 and Apnea, sleep 780.57 [facility] [address] [address] 4212 February, Tooth pain 525.9 [facility] [address] [place] [id number] [place] [address] 75391- 6648 February, [facility] [id number] [place] [address] 21232- 3136 Jan, [facility] [id number] [place] [address] 21118- 1360 Jan, [facility] [address] [address]- 5689 Dec, [facility] [address], [place] [address]- 5658 Dec, [facility] [address] [address]- 8482 Nov, [facility] [address] [address]- 2254 Nov, [facility] [address] [address]- 2772 Nov, [facility] [address] [place] [id number] [place] [address] 63997- 4337 Nov, 2014 [facility] [place] [facility] [address] [id number] [place] Nov, [facility] [place] [facility] [address] [id number] [place] [address] Nov, [facility] [place] [facility] [address] [id number] [place] [address]- 0440 15 Oct, 2014 [facility] [place] [facility] [address] [id number] [place] [address]- 4082 15 Oct, 2014 [facility] [place] [facility] [address] [id number] [place] [address]- 5139 Sep, [facility] [place] [facility] [address] [id number] [place] [address]- 0213 Sep, [facility] [place] [facility] [address] [facility] [id number] [place] [address]- 7499 Sep, [facility] [place] [facility] [address] [id number] [place] [address]- 1203 Sep, [facility] [place] [facility] [address] [id number] [place] [address]- 9041 Sep, [facility] [place] [facility] [address] [facility] [id number] [place] [address]- 4219 Sep, [facility] [place] [facility] [address] [id number] [place] [address]- 9673 Jul, [facility] [place] [facility] [address] [id number] [address]- 1785 Jul, [facility] [place] [facility] [address] [id number] 14[address] Jul, [facility] [place] [facility] [address] [id number], [place] [address]- 8685 Jul, [facility] [place] [facility] [address] [facility] [id number]- 5086 Jul, [facility] [place] [facility] [address] [id number] [place] [address]- 5581 Jul, [facility] [place] [facility] [address] [id number] [place] [address]- 2665 Jun, [facility] [place] [facility] [address] [id number] [place] [address]- 3996 Jun, [facility] [place] [facility] [address] [id number] [place] [address]- 1163 Jun, [facility] [place] [facility] [address] [id number] [place] [address]- 0563 May, [facility] [place] [facility] [address] [id number] [place] [address]- 1111 May, [facility] [place] [facility] [address] [id number] [place] [address]- 1459 May, [facility] [place] [facility] [address] [id number] [place] [address]- 6992 May, [facility] [place] [facility] [address] [id number] [place] [address]- 8046 May, [facility] [place] [facility] [address] [id number] [place] [address]- 4478 May, [facility] [place] [facility] [address] [id number] [place] [address]- 5113 Apr, [facility] [place] [facility] [address] [id number] [place] [address]- 7608 Apr, [facility] [place] [facility] [address] [id number] [place] [address]- 5091 Apr, [facility] [place] [facility] [address] [id number] [place] [address]- 5427 Apr, [facility] [place] [facility] [address] [id number] [place] [address] Apr, [facility] [place] [facility] [address] [id number] [place] [address]- 7397 Apr, [facility] [place] [facility] [address] [id number] [place] [address]- 2684 Mar, [facility] [place] [facility] [address] [id number] [place] [address]- 4151 Mar, [facility] [place] [facility] [address] [id number] [place] [address]170 Mar, [facility] [place] [facility] [address] [id number] [place] [address]- 1079 Mar, [facility] [place] [facility] [address] [id number] [place] [address]- 4142 Mar, [facility] [place] [facility] [address] [id number] [place] [address]- 4000 Mar, [facility] [place] [facility] [address] [id number] [place] [address]- 8597 Mar, [facility] [place] [facility] [address] [id number] [place] [address]- 6377 February, [facility] [place] [facility] [address] [id number] [place] [address]- 9767 February, [facility] [place] [facility] [address] [id number] [place] [address]- 8879 February, [facility] [place] [facility] [address] [id number], [place] [address]- 4324 February, [facility] [place] [facility] [address] [id number], [place] [address]- 7271 February, [facility] [place] [facility] [address] [id number] [place] [address]- 4465 February, [facility] [place] [facility] [address] [id number] [place] [address]- 1687 Jan, [facility] [place] [facility] [address] [id number] [place] [address]- 1471 Jan, [facility] [place] [facility] [address] [id number] [place] [address]- 1613 Jan, [facility] [place] [facility] [address] [id number] [place] [address]- 3440 Jan, [facility] [place] [facility] [address] [id number] [place] [address]- 3956 Jan, [facility] [place] [facility] [address] [id number] [place] [address]- 3018 Jan, [facility] [place] [facility] [address] [id number] [place] [address]- 8651 Jan, [facility] [place] [facility] [address] [id number] [place] [address]- 2928 Jan, [facility] [place] [facility] [address] [id number] [place] [address]- 2115 Jan, [facility] [place] [facility] [address] [id number] [place] [address]- 4878 Jan, [facility] [place] [facility] [address] [id number] [place] [address]- 9770 Nov, [facility] [place] [facility] [address] [id number] [place] [address]- 7275 Nov, [facility] [place] [facility] [address] [id number] [place] [address]- 6232 Nov, [facility] [place] [facility] [address] [id number] [place] [address]- 3655 Nov, [facility] [place] [facility] [address] [id number] [place] [address]- 1926 Oct, [facility] [place] [facility] [address] [id number] [place] [address]121 Oct, [facility] [place] [facility] [address] [id number] [place] [address]- 0622 Oct, [facility] [place] [facility] [address] [id number] [place] [address]- 6767 Aug, [facility] [address] [id number] [place] [address]- 3676 Aug, [facility] [place] [facility] [address] [id number] [place] [address]- 5986 Jun, [facility] [address] [id number] [place] [address]- 1608 February, [facility] [place] [facility] [address] [id number] [place] [address]- 2786 February, [facility] [address] [id number] [place] [address]- 4129 Dec, [facility] [place] [facility] [address] [id number] [place] [address]- 8796 15 Nov, 2012 [facility] [place] [facility] [address] [id number] [place] [address]- 0596 08 Nov, 2012 [facility] [place] [facility] [address] [id number] [place] [address]- 8912 08 Nov, 2012 [facility] [place] [facility] [address] [id number] [place] [address]- 5413 Nov, [facility] [place] [facility] [address] [id number] [place] [address]- 8006 05 Nov, 2012 [facility] [place] [facility] [address] [id number] [place] [address]- 8166 Oct, [facility] [place] [facility] [address] [id number] [place] [address]- 8066 Oct, [facility] [place] [facility] [address] [id number] [place] [address]- 2976 Aug, [facility] [place] [facility] [address] [id number] [place] [address]- 2156 Aug, [facility] [place] [facility] [address] [id number] [place] [address]- 8546 Oct, [facility] [place] [facility] [address] [facility] [id number] [place] [address]- 2714 Apr, [facility] [address] [facility] [id number] [place] [address]- 3767 Sep, [facility] [address] [facility] [id number] [place] [address]- 9603 Jan, IMMUNIZATIONS No Known Immunizations SOCIAL HISTORY Never Assessed REASON FOR VISIT Thyroid, Has been having intermittent chest pain CBrumbackRN PLAN OF CARE Activity Details Follow Up Will call after lab Reason: VITAL SIGNS Height 66 in 2018-01-14 Weight 220.7 lbs 2018-01-14 Temperature 98.0 degrees Fahrenheit 2018-01-14 Heart Rate 84 bpm 2018-01-14 Respiratory Rate 18 2018-01-14 BMI 35.62 kg/m2 2018-01-14 Blood pressure systolic 104 mmHg 2018-01-14 Blood pressure diastolic 80 mmHg 2018-01-14 MEDICATIONS Medication Instructions Dosage Frequency Start Date End Date Duration Status Eliquis 5 mg 1 Tablet by Oral route 2 times per day Sep, Active Toprol XL 50 MG Orally Once a day 1 tablet 24h Active Hydrochlorothiazide 12.5 MG TAKE ONE CAPSULE BY MOUTH DAILY 90 Not-Taking Losartan Potassium 50 MG Orally Once a day TAKE ONE TABLET BY MOUTH DAILY 24h 30 Not-Taking Levothyroxine Sodium 100 MCG Orally Once a day 1 tablet 24h 30 Active Multivitamin Adult - Active RESULTS No Results PROCEDURES Procedure Date Ordered Result Body Site ASSAY THYROID STIM HORMONE January 14, 2018 ASSAY OF PSA, TOTAL January 14, 2018 VENIPUNCT, ROUTINE* January 14, 2018 INSTRUCTIONS MEDICATIONS ADMINISTERED No Known Medications MEDICAL (GENERAL) HISTORY Type Description Date Medical History hypertension Medical History Arthritis Medical History Hypothyroidism Medical History Sleep apnea Surgical History cardiac pacemaker 02/2017 Surgical History heart cath Hospitalization History surgeries only
--- OUTSIDE RECORDS SUMMARY | 2018-07-15 18:52 | XMS REPORT ---
Author Author KAYCEE RESENDIZ [facility] eClinicalWorks Address Unknown Phone Unavailable Care Team Providers Care Disabilities Services Officer Name Role Phone KAYCEE RESENDIZ CP Unavailable [...] in joint, shoulder region 719.41 Active Medications Medication Code System Code Instructions Start Date End Date Status Dosage Losartan Potassium [facility] [address]-94 50 MG Orally Once a day TAKE ONE TABLET BY MOUTH DAILY Results No Known Results Summary Purpose eClinicalWorks Submission
--- OUTSIDE RECORDS SUMMARY | 2018-07-15 18:52 | XMS REPORT ---
Author Author KAYCEE RESENDIZ Organization [facility] Address [address] [place] [address] Care Team Providers Care Information Technology Internship Name Role Phone KAYCEE RESENDIZ Unavailable PROBLEMS Type Condition ICD9-CM Code IML05-RB Code Onset Dates Condition Status SNOMED Code Problem Prostatism N40.0 Active 37613760 Problem Dilated cardiomyopathy I42.0 Active 134483666 Problem PAF (paroxysmal atrial fibrillation) I48.0 Active 850302762 Problem Acquired hypothyroidism E03.9 Active 464347489 Problem Essential hypertension I10 Active 98228585 ALLERGIES No Information ENCOUNTERS Encounter Location Date Diagnosis [place] [id number] [address] Apr, [facility] [address] [address] Apr, [place] [address] [address] Apr, Acute midline thoracic back pain M54.6 ; Trigger point with back pain M54.9 and Muscle spasm M62.838 [place] [address] [address] Jan, [facility] [address] [address] Dec, Acquired hypothyroidism E03.9 and Prostatism N40.0 [facility] [address] [address] Dec, [place] [address] [address] Nov, [facility] [address] [address] February, Dilated cardiomyopathy I42.0 [facility] [address] [place] [id number] [place] [address]- [address] February, Essential hypertension I10 [facility] [address] [place] [id number] [place] [address]- 9[address] Jan, [facility] [address] [place] [id number] [place] [address]60- 225[address] Nov, Acquired hypothyroidism E03.9 [facility] [address] [place] [id number] [place] [address]- 25[address] Nov, [facility] [address] [address] Nov, Hypertension I10 [facility] [address] [place] [id number] [place] [address]54- 35[address] Aug, Lipoma of neck D17.0 [facility] [address] [place] [id number] [place] [address]- 5516 Aug, Skin tag L91.8 [facility] [address] [place] [id number] [place] [address]- 6379 Aug, Acquired hypothyroidism E03.9 and Skin lesions L98.9 [facility] [address] [place] [id number] [place] [address] 112[address]- 9971 May, Acquired hypothyroidism E03.9 [facility] [address] [place] [id number] [place] [address] 9[address]23- 4676 May, Acquired hypothyroidism E03.9 ; PAF (paroxysmal atrial fibrillation) I48.0 and Essential hypertension I10 [facility] [address] [address] May, Acquired hypothyroidism E03.9 ; Hypertension I10 and PAF ( paroxysmal atrial fibrillation) I48.0 [facility] [address] [place] [id number] [place] [address] 77392- 6690 Dec, Hypertension I10 [facility] [address] [address] Aug, [facility] [id number] [place] [address]74- 7733 Jul, [facility] [address] [address] May, [facility] [address] [place] [id number] [place] [address] 9[address]20- 3253 May, [facility] [address] [place] [id number] [place] [address] 18003- 5394 May, Wide-complex tachycardia 427.1 ; Hypertension 401.9 ; PAF ( paroxysmal atrial fibrillation) 427.31 and Apnea, sleep 780.57 [facility] [address] [place] [id number] [address] February, Tooth pain 525.9 [facility] [address] [place] [id number] [place] [address] 42164- 5115 February, [facility] [id number] [place] [address] 05593- 8671 Jan, [facility] [id number] [place] [address] 34009- 8254 Jan, [facility] [address] [address] 8[address] Dec, [facility] [address] [address] 6[address] Dec, [facility] [address] [address] Nov, [facility] [address] [place] [id number] [place] [address] 46572- 4859 Nov, [facility] [address], [place] [address] 1412 Nov, [facility] [address] [place] [id number] [place] [address] 81955- 4447 Nov, [facility] [place] [facility] [address] [id number] [place] [address] 2132 Nov, [facility] [place] [facility] [address] [id number] [place] Nov, [facility] [place] [facility] [address] [facility] [id number] [place] [address]- 4986 15 Oct, 2014 [facility] [place] [facility] [address] [id number] [place] [address]- 9398 15 Oct, 2014 [facility] [place] [facility] [address] [id number] [place] [address]- 9206 Sep, [facility] [place] [facility] [address] [id number] [place] [address]- 7689 Sep, [facility] [place] [facility] [address] [facility] [id number] [address]- 8146 Sep, [facility] [place] [facility] [address] [id number] [place] [address]- 5135 Sep, [facility] [place] [facility] [address] [facility] [id number] [place] [address]- 6868 Sep, [facility] [place] [facility] [address] [facility] [id number] [place] [address]- 4214 Sep, [facility] [place] [facility] [address] [facility] [id number], [place] [address]- 0[address] Jul, [facility] [place] [facility] [address] [id number], [place] [address]- 6744 Jul, [facility] [place] [facility] [address] [id number] [address] Jul, [facility] [place] [facility] [address] [facility] [id number] [address] Jul, [facility] [place] [facility] [address] [facility] [id number] [address] Jul, [facility] [place] [facility] [address] [id number] [place] [address]- 1975 Jul, [facility] [place] [facility] [address] [id number] [facility] [place] [address]- 7268 Jun, [facility] [place] [facility] [address] [id number] [place] [address]- 1086 Jun, [facility] [place] [facility] [address] [id number] [place] [address]- 0546 Jun, [facility] [place] [facility] [address] [id number] [place] [address]- 9275 May, [facility] [place] [facility] [address] [id number] [place] [address]- 6548 May, [facility] [place] [facility] [address] [id number] [place] [address]- 1754 May, [facility] [place] [facility] [address] [id number] [place] [address]- 4046 May, [facility] [place] [facility] [address] [id number] [place] [address]- 6752 May, [facility] [place] [facility] [address] [id number] [place] [address]- 3938 May, [facility] [place] [facility] [address] [id number] [place] [address]- 9536 Apr, [facility] [place] [facility] [address] [id number] [place] [address]- 5685 Apr, [facility] [place] [facility] [address] [id number] [place] [address]- 0157 Apr, [facility] [place] [facility] [address] [id number] [place] [address]- 6716 Apr, [facility] [place] [facility] [address] [id number] [place] [address]- 1097 Apr, [facility] [place] [facility] [address] [id number] [place] [address]- 7992 Apr, [facility] [place] [facility] [address] [id number] [place] [address]- 8888 Mar, [facility] [place] [facility] [address] [id number] [place] [address]- 7776 Mar, [facility] [place] [facility] [address] [id number] [place] [address]- 4054 Mar, [facility] [place] [facility] [address] [id number] [place] [address]- 3176 Mar, [facility] [place] [facility] [address] [id number] [place] [address]- 0839 Mar, [facility] [place] [facility] [address] [id number] [place] [address]- 5825 Mar, [facility] [place] [facility] [address] [id number] [place] [address]- 6567 Mar, [facility] [place] [facility] [address] [id number] [place] [address]- 3131 February, [facility] [place] [facility] [address] [id number] [place] [address]- 6090 February, [facility] [place] [facility] [address] [id number] [place] [address]- 2719 February, [facility] [place] [facility] [address] [id number] [place] [address]- 1666 February, [facility] [place] [facility] [address] [id number], [place] [address]- 9262 February, [facility] [place] [facility] [address] [id number] [place] [address]- 5864 February, [facility] [place] [facility] [address] [id number] [place] [address]- 1686 Jan, [facility] [place] [facility] [address] [id number] [place] [address]- 3320 Jan, [facility] [place] [facility] [address] [id number] [place] [address]- 3357 Jan, [facility] [place] [facility] [address] [id number] [place] [address]- 5165 Jan, [facility] [place] [facility] [address] [id number] [place] [address]- 1385 Jan, [facility] [place] [facility] [address] [id number] [place] [address]- 1960 Jan, [facility] [place] [facility] [address] [id number] [place] [address]- 1640 Jan, [facility] [place] [facility] [address] [id number] [place] [address]- 0431 Jan, [facility] [place] [facility] [address] [id number] [place] [address]- 8810 Jan, [facility] [place] [facility] [address] [id number] [place] [address]- 8197 Jan, [facility] [place] [facility] [address] [id number] [place] [address]- 2830 Nov, [facility] [place] [facility] [address] [id number] [place] [address]- 8450 Nov, [facility] [place] [facility] [address] [id number] [place] [address]- 0669 Nov, [facility] [place] [facility] [address] [id number] [place] [address]- 4398 Nov, [facility] [place] [facility] [address] [id number] [place] [address]- 2517 Oct, [facility] [place] [facility] [address] [id number] [place] [address] Oct, [facility] [place] [facility] [address] [id number] [place] [address]- 2836 Oct, [facility] [place] [facility] [address] [id number] [place] [address]- 4679 Aug, [facility] [address] [id number] [place] [address]- 0705 Aug, [facility] [address] [id number] [place] [address]- 4466 Jun, [facility] [address] [id number] [place] [address]- 4276 February, [facility] [place] [facility] [address] [id number] [place] [address]- 4476 February, [facility] [address] [id number] [place] [address]- 0582 Dec, [facility] [place] [facility] [address] [id number] [place] [address]- 8976 15 Nov, 2012 [facility] [address] [id number] [place] [address]- 5696 08 Nov, 2012 [facility] [address] [id number] [place] [address]- 3245 Nov, [facility] [address] [id number] [place] [address]- 1584 Nov, [facility] [address] [id number] [place] [address]- 6946 05 Nov, 2012 [facility] [address] [id number] [place] [address]- 9236 Oct, [facility] [place] [facility] [address] [id number] [address]- 5036 Oct, [facility] [place] [facility] [address] [id number] [place] [address]- 3446 Aug, [facility] [place] [facility] [address] [id number] [place] [address]- 6446 Aug, [facility] [place] [facility] [address] [id number] [place] [address]- 6126 Oct, [facility] [place] [facility] [address] [facility] [id number] [place] [address] Apr, [facility] [address] [facility] [id number] [place] [address]- 2067 Sep, [facility] [address] [facility] [id number] [place] [address] [address] Jan, IMMUNIZATIONS No Known Immunizations SOCIAL HISTORY Never Assessed REASON FOR VISIT update referral PLAN OF CARE VITAL SIGNS MEDICATIONS Unknown Medications RESULTS No Results PROCEDURES No Known procedures INSTRUCTIONS MEDICATIONS ADMINISTERED No Known Medications MEDICAL (GENERAL) HISTORY Type Description Date Medical History hypertension Medical History Arthritis Medical History Hypothyroidism Medical History Sleep apnea Surgical History cardiac pacemaker 02/2017 Surgical History heart cath Hospitalization History surgeries only
--- OUTSIDE RECORDS SUMMARY | 2018-07-15 18:52 | XMS REPORT ---
Author Author KAYCEE RESENDIZ [facility] eClinicalWorks Address Unknown Phone Unavailable Care Team Providers Care Spring Fitter Name Role Phone KAYCEE RESENDIZ CP Unavailable [...] Date End Date Status Dosage Losartan Potassium [facility] [address]-20 50 MG Orally Once a day TAKE ONE TABLET BY MOUTH DAILY Results No Known Results Summary Purpose eClinicalWorks Submission
--- OUTSIDE RECORDS SUMMARY | 2018-07-15 18:52 | XMS REPORT ---
Author Author KAYCEE RESENDIZ [facility] Address [address] [place] [address] Care Team Providers Care Electroplating Technician Name Role Phone KAYCEE RESENDIZ Unavailable PROBLEMS Type Condition ICD9-CM Code IEN95-GR Code Onset Dates Condition Status SNOMED Code Problem Dilated cardiomyopathy I42.0 Active 950311174 Problem Acquired hypothyroidism E03.9 Active 779152911 Problem Essential hypertension I10 Active 94022415 Problem PAF (paroxysmal atrial fibrillation) I48.0 Active 104686237 ALLERGIES No Information SOCIAL HISTORY Never Assessed [...]
--- OUTSIDE RECORDS SUMMARY | 2018-07-15 18:53 | XMS REPORT ---
Author Author KAYCEE RESENDIZ [facility] eClinicalWorks Address Unknown Phone Unavailable Care Team Providers Care First Aid Trainer Name Role Phone KAYCEE RESENDIZ CP Unavailable [...] Date End Date Status Dosage Levothyroxine Sodium [facility] [address]-58 112 MCG Orally Once a day Jun 13, 2016 1 tablet on an empty stomach in the morning Results No Known Results Summary Purpose eClinicalWorks Submission
--- OUTSIDE RECORDS SUMMARY | 2018-07-15 18:53 | XMS REPORT ---
Author Author KAYCEE RESENDIZ [facility] eClinicalWorks Address Unknown Phone Unavailable Care Team Providers Care Scada Operator Name Role Phone KAYCEE RESENDIZ CP Unavailable [...] Other malaise and fatigue 780.79 Active Assessment Hypertension I10 Active Assessment Acquired hypothyroidism E03.9 Active Problem Unspecified hypothyroidism 244.9 Active Assessment PAF (paroxysmal atrial fibrillation) I48.0 Active Problem Unspecified site of sprain and strain 848.9 Active Medications No Known Medications Procedures Procedure Coding System Code Date ASSAY OF FREE THYROXINE CPT-4 10104 Jun 10, 2016 COMPLETE CBC W/AUTO DIFF WBC CPT-4 10876 Jun 10, 2016 ASSAY THYROID STIM HORMONE CPT-4 81828 Jun 10, 2016 LIPID PANEL CPT-4 19133 Jun 10, 2016 COMPREHEN METABOLIC PANEL CPT-4 81868 Jun 10, 2016 VENIPUNCT, ROUTINE* CPT-4 04872 Jun 10, 2016 Results No Known Results Summary Purpose eClinicalWorks Submission
--- OUTSIDE RECORDS SUMMARY | 2018-07-15 18:53 | XMS REPORT ---
Author Author KAYCEE RESENDIZ [facility] Address [address] [place] [address] Care Team Providers Care Prison Psychiatrist Name Role Phone KAYCEE RESENDIZ Unavailable PROBLEMS Type Condition ICD9-CM Code [id number] Code Onset Dates Condition Status SNOMED Code Problem Dilated cardiomyopathy I42.0 Active 611151578 Problem Acquired hypothyroidism E03.9 Active 823209912 Problem Essential hypertension I10 Active 68066630 Problem PAF (paroxysmal atrial fibrillation) I48.0 Active 480436882 ALLERGIES No Known Allergies SOCIAL HISTORY Never Assessed PLAN OF CARE Activity Details Follow Up prn Reason: VITAL SIGNS Height 66 in 2017-03-24 Weight 229.9 lbs 2017-03-24 Temperature 97.6 degrees Fahrenheit 2017-03-24 Heart Rate 72 bpm 2017-03-24 Respiratory Rate 18 2017-03-24 BMI 37.10 kg/m2 2017-03-24 Blood pressure systolic 102 mmHg 2017-03-24 Blood pressure diastolic 70 mmHg 2017-03-24 MEDICATIONS Medication Instructions Dosage Frequency Start Date End Date Duration Status Multivitamin Adult - Active Eliquis 5 mg 1 Tablet by Oral route 2 times per day Sep, Active Hydrochlorothiazide 12.5 MG TAKE ONE CAPSULE BY MOUTH DAILY 90 Active Toprol XL 50 MG Orally Once a day 1 tablet 24h Active Losartan Potassium 50 MG Orally Once a day TAKE ONE TABLET BY MOUTH DAILY 24h 30 Active RESULTS Name Result Date Reference Range CBC 2017-03-24 WBC 8.2 3.4-10.8 RBC 4.59 4.14-5.80 Hemoglobin 15.1 12.6-17.7 Hematocrit 43.4 37.5-51.0 MCV 95 79-97 MCH 32.9 26.6-33.0 MCHC 34.8 31.5-35.7 RDW 13.4 12.3-15.4 Platelets 267 150-379 Neutrophils 57 Lymphs 31 Monocytes 9 Eos 1 Basos 0 Neutrophils (Absolute) 4.7 1.4-7.0 Lymphs (Absolute) 2.6 0.7-3.1 Monocytes(Absolute) 0.7 0.1-0.9 Eos (Absolute) 0.1 0.0-0.4 Baso (Absolute) 0.0 0.0-0.2 Immature Granulocytes 2 Immature Grans (Abs) 0.1 0.0-0.1 BMP 2017-03-24 Glucose, Serum 103 65-99 BUN 16 6-24 Creatinine, Serum 1.10 0.76-1.27 eGFR If NonAfricn Am 75 >59 eGFR If Africn Am 87 >59 BUN/Creatinine Ratio 15 9-20 Sodium, Serum 141 134-144 Potassium, Serum 3.8 3.5-5.2 Chloride, Serum 100 96-106 Carbon Dioxide, Total 26 18-29 Calcium, Serum 9.7 8.7-10.2 PROCEDURES Procedure Date Ordered Result Body Site COMPLETE CBC W/AUTO DIFF WBC March 24, 2017 BASIC METABOLIC PANEL March 24, 2017 VENIPUNCT, ROUTINE* March 24, 2017 IMMUNIZATIONS No Known Immunizations MEDICAL (GENERAL) HISTORY Type Description Date Medical History hypertension Medical History Arthritis Medical History Hypothyroidism Medical History Sleep apnea Surgical History cardiac pacemaker 02/2017 Surgical History heart cath Hospitalization History surgeries only
--- OUTSIDE RECORDS SUMMARY | 2018-07-15 18:53 | XMS REPORT ---
Author Author KAYCEE RESENDIZ [facility] eClinicalWorks Address Unknown Phone Unavailable Care Team Providers Care Construction Sales Manager Name Role Phone KAYCEE RESENDIZ CP Unavailable Allergies No Known Allergies Problems Problem Type Condition ICD-9 Code Onset Dates Condition Status Assessment Hypertension 401.9 Active Problem Unspecified hypothyroidism 244.9 Active Assessment Wide-complex tachycardia 427.1 Active Assessment Apnea, sleep 780.57 Active Assessment PAF (paroxysmal atrial fibrillation) 427.31 Active Problem Unspecified disorders of bursae and tendons in shoulder region 726.10 Active Problem Impacted cerumen 380.4 Active Problem Other malaise and fatigue 780.79 Active Problem Unspecified arthropathy, site unspecified 716.90 Active Problem Unspecified site of sprain and strain 848.9 Active Problem Other heart block 426.6 Active Problem Pain in joint, shoulder region 719.41 Active Medications No Known Medications Procedures Procedure Coding System Code Date ASSAY OF MAGNESIUM CPT-4 59804 Jun 13, 2015 ASSAY THYROID STIM HORMONE CPT-4 32036 Jun 13, 2015 COMPREHEN METABOLIC PANEL CPT-4 82544 Jun 13, 2015 VENIPUNCT, ROUTINE* CPT-4 07568 Jun 13, 2015 COMPLETE CBC W/AUTO DIFF WBC CPT-4 96390 Jun 13, 2015 Results Name Result Date Reference Range Unit Abnormality Flag ROUTINE VENIPUNCTURE MAGNESIUM, SERUM Summary Purpose eClinicalWorks Submission
--- OUTSIDE RECORDS SUMMARY | 2018-07-15 18:53 | XMS REPORT ---
Author Author KAYCEE RESENDIZ [facility] eClinicalWorks Address Unknown Phone Unavailable Care Team Providers Care Construction Director Name Role Phone KAYCEE RESENDIZ CP [...] Instructions Start Date End Date Status Dosage Coreg [facility] [address]-40 3.[address] Johnson 2 times a day Aug 1 tablet Results No Known Results Summary Purpose eClinicalWorks Submission
--- OUTSIDE RECORDS SUMMARY | 2018-07-15 18:53 | XMS REPORT ---
Author Author NATALIE DOMINGUEZ Organization eClinicalWorks Address Unknown Phone Unavailable Care Team Providers Care Health Data Analyst Name Role Phone NATALIE DOMINGUEZ CP Unavailable Allergies, Adverse Reactions, Alerts Substance Reaction Event Type N.K.D.A. Info Not Available Non Drug Allergy Problems Problem Type Condition Code Onset Dates Condition Status Problem PAF (paroxysmal atrial fibrillation) I48.0 Active Problem Essential hypertension I10 Active Problem Acquired hypothyroidism E03.9 Active Problem Hypertension I10 Active Assessment Skin tag L91.8 Active Medications Medication Code System Code Instructions Start Date End Date Status Dosage Coreg [facility] 98553885821 3.[address] Johnson 2 times a day 1 tablet Eliquis [facility] [address]-21 5 mg Oct 09, 2014 1 Tablet by Oral route 2 times per day Hydrochlorothiazide [facility] 16464692244 12.5 MG TAKE ONE CAPSULE BY MOUTH DAILY Multivitamin Adult [facility] [address] - Orally not defined Levothyroxine Sodium [facility] [address]-07 112 MCG TAKE ONE TABLET BY MOUTH ONCE DAILY IN THE MORNING ON AN EMPTY STOMACH (REPEAT LAB ON 09/08/16) Losartan Potassium [facility] 15662670697 50 MG Orally Once a day TAKE ONE TABLET BY MOUTH DAILY Procedures Procedure Coding System Code Date Office Visit, Est Pt., Level 2 CPT-4 45736 Sep 16, 2016 REMOVAL OF SKIN TAGS CPT-4 22229 Sep 16, 2016 Vital Signs Date/Time: Sep 16, 2016 Cardiac Monitoring Heart Rate 76 bpm Weight 224.1 lbs Height 66 in BMI 36.17 Index Blood Pressure Diastolic 80 mmHg Blood Pressure Systolic 118 mmHg Results Name Result Date Reference Range Unit Abnormality Flag SKIN TAG REM 1-15 Summary Purpose eClinicalWorks Submission
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
--- NOTE | 2018-07-15 19:26 | ED General ---
General Chief Complaint: Dental Problems/Pain Stated Complaint: TOOK OUT DENTURES, BLEEDING Nursing Triage Note: PT PRESENTS TO ED WITH AND SON WITH COMPLAINTS OF BLEEDING FROM GUMS AFTER TEETH PULLED TODAY. PT FAMILY REPORTS HE WAS SUPPOSED TO KEEP HIS DENTURES IN AFTER SURGERY BUT PT WAS HAVING TROUBLE WITH HIS GAG REFLEX AND REMOVED THEM. Nursing Sepsis Screen: No Definite Risk Source of Information: Patient Exam Limitations: No Limitations History of Present Illness Date Seen by Provider: Jul 15, 2018 Time Seen by Provider: 16:55 Initial Comments This 57-year-old gentleman presents to the emergency room with bleeding from his dental extraction sites. He was on the way home from his dental surgery when he began to have a large amount of bleeding. He had dentures placed and was to keep those in until his follow-up appointment tomorrow. However, he cannot keep them in due to the amount of bleeding. He presents biting on some gauze. He does take Eliquis but he has been off his Eliquis for several days in preparation for the procedure. Allergies and Home Medications Allergies Coded Allergies: No Known Drug Allergies (Unverified , 05/02/11) Home Medications Apixaban 5 Mg Tablet, 5 MG PO BID, (Reported) Hydrochlorothiazide 12.5 Mg Cap, 12.5 MG PO DAILY, (Reported) Levothyroxine Sodium 100 Mcg Tablet, 100 MCG PO DAILY, (Reported) Losartan Potassium 50 Mg Tablet, 50 MG PO DAILY, (Reported) Multivitamin 1 Each Tablet, 1 TAB PO DAILY, (Reported) Patient Home Medication List Home Medication List Reviewed: Yes Review of Systems Review of Systems Constitutional: no symptoms reported EENTM: see HPI Respiratory: no symptoms reported Cardiovascular: no symptoms reported Gastrointestinal: no symptoms reported Genitourinary: no symptoms reported Musculoskeletal: no symptoms reported Skin: no symptoms reported Psychiatric/Neurological: No Symptoms Reported Hematologic/Lymphatic: No Symptoms Reported Immunological/Allergic: no symptoms reported Past Xtcgtbl-Woyrav-Zcgmfr Hx Past Med/Social Hx: Reviewed and Corrections made Patient Social History Alcohol Use: Denies Use Recreational Drug Use: No Smoking Status: Never a Smoker Recent Foreign Travel: No Contact w/Someone Who Travel: No Recent Infectious Disease Expo: No Immunizations Up To Date Tetanus Booster (TDap): More than 5yrs Seasonal Allergies Seasonal Allergies: No Past Medical History Surgeries: Yes (CARPEL TUNNEL R HAND, DENTAL extractions) Pacemaker Respiratory: Yes Cardiac: Yes (PACEMAKER) Atrial Fibrillation Neurological: No Reproductive Disorders: No Gastrointestinal: Yes Gastroesophageal Reflux Musculoskeletal: No Endocrine: No Cancer: No Psychosocial: No Integumentary: No Blood Disorders: No Family Medical History Reviewed Nursing Family Hx Family history: Cardiovascular disease 03 FATHER 09 BROTHER (HEART TRANSPLANT) 09 BROTHER 09 BROTHER (HEART TRANSPLANT) 09 BROTHER Family history: Diabetes mellitus 03 MOTHER Kidney disease 03 MOTHER Physical Exam Vital Signs Vital Signs - First Documented 07/15/18 18:56 Temp 98.8 Pulse 80 Resp 16 B/P (MAP) 139/99 (112) Pulse Ox 97 Capillary Refill : Less Than 3 Seconds Height, Weight, BMI Height: 5'8.00" Weight: 210lbs. 0.0oz. 95.195884mp; 33.6 BMI Method:Stated General Appearance: WD/WN, Other (appears drowsy) HEENT: PERRL/EOMI, Other (numerous dental extraction sites with clots and subtle oozing. No significant hemorrhaging noted on exam.) Respiratory: Lungs Clear, Normal Breath Sounds, No Accessory Muscle Use Cardiovascular: Regular Rate, Rhythm, No Edema, No Murmur Extremity: Normal Inspection Neurologic/Psychiatric: Alert, No Motor/Sensory Deficits, physical education instructor II-XII Norm as Tested, Other (drowsy from postoperative state) Skin: Normal Color, Warm/Dry Progress/Results/Core Measures Suspected Sepsis Recent Fever Within 48 Hours: No Infection Criteria Present: None New/Unexplained Altered Menta: No Sepsis Screen: No Definite Risk SIRS Temperature:98.8 Pulse: 80 Respiratory Rate: 16 Blood Pressure 139 /99 Mean: 112 Results/Orders My Orders Orders - GRETTA DIAZ MD Hydrocodone/Apap 5/325 Tablet (Lortab 5 (07/15/18 20:30) Tranexamic Acid Injection (Cyklokapron I (07/15/18 20:45) Rx-Hydrocodone/Apap 5-325 Mg (Rx-Vicodin (07/15/18 21:00) Medications Given in ED Current Medications Medications Dose Ordered Sig/Stephania Route Start Time Stop Time Status Last Admin Dose Admin Acetaminophen/ Hydrocodone Bitart 1 ea Q6H PRN PO 07/15/18 21:00 07/15/18 21:00 DC 07/15/18 20:49 1 EA Acetaminophen/ Hydrocodone Bitart 1 tab ONCE ONCE PO 07/15/18 20:30 07/15/18 20:31 DC 07/15/18 20:28 1 TAB Tranexamic Acid Topical use ONCE ONCE IV 07/15/18 20:45 07/15/18 20:46 DC 07/15/18 20:35 100 MG Vital Signs/I&O 07/15/18 07/15/18 18:56 20:52 Temp 98.8 97.3 Pulse 80 86 Resp 16 12 B/P (MAP) 139/99 (112) 130/98 Pulse Ox 97 100 Capillary Refill : Less Than 3 Seconds Blood Pressure Mean: 112 Progress Note #1: Time: 19:30 Progress Note Patient was examined and found to have some subtle oozing from multiple extraction sites. No overt hemorrhaging was found any particular site. He was given clean gauze to bite on and will be reexamined. Progress Note #2: Progress Note Patient was reexamined several times. He continued to have very subtle oozing from multiple sockets but no particular socket that demonstrated hemorrhage. I was eventually able to contact the feed mill manager from the dental office that performed his surgery. She recommended reapplying the dentures if at all possible. I did attempt reapplying the dentures with the denture paste that was provided. Patient could not tolerate the dentures due to pain and gagging. Dentures were left out. New gauze soaked with TXA was applied to the sockets. Patient was instructed to leave this gauze in until he returned home and then replace with clean gauze. Patient's pain was escalating. He was given hydrocodone and he took his prescribed amoxicillin. Patient also complained of some double vision which he has experienced previously from anesthesia. Patient had an increasing level of alertness throughout his ER stay. Departure Impression Primary Impression: Postoperative bleeding from mouth Additional Impression: Postoperative pain Disposition: 01 HOME, SELF-CARE Condition: Stable Departure-Patient Inst. Decision time for Depature: 20:43 Referrals: KAYCEE RESENDIZ MD (PCP/Family) Primary Care Physician Patient Instructions: NO INSTRUCTIONS GIVEN Add. Discharge Instructions: Continue to bite down on gauze rolls. Keep your follow-up with the oral surgeon tomorrow. Bring your dentures with you. Use hydrocodone as prescribed for pain. You may add the ibuprofen prescription back in to your pain treatment once the bleeding tapers off. Call the emergency room or the emergency number on your surgery paperwork if you have any other problems or concerns. Follow the postoperative instructions on your papers from the surgeon. Remove the treated gauze rolls when you return home and replace with clean gauze. All discharge instructions reviewed with patient and/or family. Voiced understanding. GRETTA DIAZ MD Jul 15, 2018 19:26
[2018-07-15] MEDS ORDERED: HYDROcodone/APAP 5 MG/325 MG (LORTAB) TAB PO ONE (20:30)
[2018-07-15] MEDS ORDERED: TRANEXAMIC ACID 100 MG/ML 10 ML INJECTION IV ONE (20:45)
[2018-07-15 20:52] VITALS: BP 130/98
[2018-07-15] MEDS ORDERED: RX-HYDROCODONE/APAP 5/325 MG #4 TAB PK PO PRN (21:00)
== END 2018-07-15 20:52 | disposition home or self-care (01) ==
LOC: EDUNIT# 18:41 → ER 18:45
DX: K91.840 Postprocedural hemorrhage of a digestive system organ or structure following a digestive system procedure (principal); G89.18 Other acute postprocedural pain; K08.89 Other specified disorders of teeth and supporting structures; I48.91 Unspecified atrial fibrillation; K21.9 Gastro-esophageal reflux disease without esophagitis; Z82.49 Family history of ischemic heart disease and other diseases of the circulatory system; Z95.0 Presence of cardiac pacemaker; Z79.01 Long term (current) use of anticoagulants; Z98.890 Other specified postprocedural states
CPT/HCPCS: 96360; 99284

== ENCOUNTER → 2020-04-25 | Outpatient (CLI) | payer SELFPAY ==
[~2020-04-25] MED LIST changes: +CATHETER FLUSH 10 ML SYR IV PRN; +HOLD METFORMIN - RECEIVED CONTRAST 20 ML VIAL IV SCH; +IOHEXOL 350 MG/ML 100 ML (OMNIPAQUE 350) VIAL IV ONE; +NS 100 ML (IVPB) BAG IV ONE
[2020-04-25 15:11] LABS: BASOPHILS % (AUTO) 0 % (0-10); EOSINOPHILS # (AUTO) 0.1 10^3/uL (0.0-0.3); EOSINOPHILS % (AUTO) 1 % (0-10); HEMATOCRIT 45 % (40-54); HEMOGLOBIN 15.9 G/DL (13.3-17.7); LYMPHOCYTES # (AUTO) 2.9 X 10^3 (1.0-4.0); LYMPHOCYTES % (AUTO) 33 % (12-44); MEAN CORPUSCULAR HEMOGLOBIN 32 PG (25-34); MEAN CORPUSCULAR HGB CONC 35 G/DL (32-36); MEAN CORPUSCULAR VOLUME 91 FL (80-99); MEAN PLATELET VOLUME 9.9 FL (7.4-10.4); MONOCYTES # (AUTO) 0.9 X 10^3 (0.0-1.0); MONOCYTES % (AUTO) 10 % (0-12); NEUTROPHILS # (AUTO) 4.9 X 10^3 (1.8-7.8); NEUTROPHILS % (AUTO) 55 % (42-75); PLATELET COUNT 250 10^3/uL (130-400); RED CELL DISTRIBUTION WIDTH 12.8 % (10.0-14.5); WHITE BLOOD COUNT 8.9 10^3/uL (4.3-11.0)
[2020-04-25 15:25] LABS: POTASSIUM 4.2 MMOL/L (3.6-5.0)
[2020-04-25 15:26] LABS: CALCIUM 9.6 MG/DL (8.5-10.1)
[2020-04-25 15:30] LABS: CREATININE SERUM 1.27 MG/DL (0.60-1.30)
[2020-04-25 15:34] LABS: ERYTHROCYTE SEDIMENTATION RATE 4 MM/HR (0-30)
--- NOTE | 2020-04-25 16:40 | Diagnostic Imaging Report ---
PROCEDURE: CT angiography of the head and CT angiography of the neck with and without contrast. TECHNIQUE: Contiguous noncontrast images were obtained from the skull base through the vertex. After intravenous contrast administration, helical CT angiography of the neck was performed. Source data was reformatted into 3D MIP projections. Delayed post contrast acquisition was also obtained. Auto Exposure Controls were utilized during the CT exam to meet ALARA standards for radiation dose reduction. INDICATION: Left third nerve palsy of five days' duration, diplopia also as well as difficulty in opening the left eye. COMPARISON: Exam compared with CT angio head performed on 02/10/2015. FINDINGS: CT HEAD: Preinjection and delayed postinjection head CT revealed no hemorrhage, hydrocephalus, edema, mass, mass effect, or abnormal enhancement. CT ANGIO NECK: Aortic arch and the branching pattern of the great vessels are normal. The cervical vertebral arteries are widely patent, symmetric, and codominant. The bilateral common carotids, the carotid bulbs, bifurcations, major external carotid branches, and cervical internal carotid arteries are widely patent. No intimal irregularity, dissection, significant plaque, stenosis, or occlusion. CT ANGIO HEAD: The intracranial ICAs appeared unremarkable. The A1 segments are patent. ACOM is believed visualized and unremarkable. The paired anterior cerebral arteries appeared normal. The bilateral middle cerebral arterial segments and primary branches were widely patent. No findings to explain the presenting complaint of third nerve palsy. There was no evidence for aneurysm, thrombus, stenosis, or vascular malformation. IMPRESSION: This is an unremarkable CT angiographic study of the neck and head. Head portion is noted unchanged from comparison exam. Dictated by: Dictated on workstation # [id number]
== END ==
LOC: RAD 14:57
PROVIDERS: ATTEND Optometrist
DX: H49.02 Third [oculomotor] nerve palsy, left eye (principal)
CPT/HCPCS: 36415; 70496; 70498; 80048; 85025; 85652; 86141

== ENCOUNTER → 2022-10-14 | Outpatient (CLI) | payer OTHER ==
[~2022-10-14] MED LIST changes: -CATHETER FLUSH 10 ML SYR IV PRN; -HOLD METFORMIN - RECEIVED CONTRAST 20 ML VIAL IV SCH; -IOHEXOL 350 MG/ML 100 ML (OMNIPAQUE 350) VIAL IV ONE; -NS 100 ML (IVPB) BAG IV ONE
== END ==
LOC: CARD 15:00
PROVIDERS: ATTEND Nurse Practitioner Family
DX: I48.0 Paroxysmal atrial fibrillation (principal)
CPT/HCPCS: 93306

== ENCOUNTER → 2023-01-13 | Outpatient (CLI) | payer OTHER ==
[~2023-01-13] MED LIST changes: +CATHETER FLUSH 10 ML SYR IVP PRN; +REGADENOSON 0.4 MG/5 ML SYR (LEXISCAN) IV ONE
[2023-01-13 09:22] VITALS: BP 114/78
--- NOTE | 2023-01-15 13:41 | STRESS TEST ---
DATE OF SERVICE: 01/13/2023 RESTING AND POST REGADENOSON TECHNETIUM-99M TETROFOSMIN SPECT CT IMAGING ORDERING PHYSICIAN: Liliya Alcocer APRN. PRIMARY PHYSICIAN: Dr. Juarez. CLINICAL DIAGNOSIS: Shortness of breath. Baseline images were carried out after injection of 10.87 mCi technetium-99m tetrofosmin. This was followed by 0.4 mg regadenoson and 32.1 mCi of technetium-99m tetrofosmin for stress imaging. The electrocardiogram showed a paced ventricular rhythm throughout the study. The patient tolerated the procedure well. He noted some lightheadedness, which resolved in a few minutes. Review of images at rest and following stress indicate a small apical perfusion defect that appears fixed. There appears to be localized apical akinesis to dyskinesis. There appears to be mild global hypokinesis. Left ventricular ejection fraction is calculated to be 44%. CONCLUSIONS: 1. This study is suggestive of a small apical infarction. 2. Localized apical akinesis to dyskinesis. 3. Impairment of global left ventricular systolic function with an ejection fraction of 44%. Job ID: [id number] DocumentID: [id number] Dictated Date: 01/15/2023 13:25:40 Plant Breeder Date: 01/15/2023 13:40:00 Dictated By: JORJE PAIZ MD; ESTRELLA; FACP; FACC;
== END ==
LOC: CARD 08:15
PROVIDERS: ATTEND Nurse Practitioner Family
DX: I25.10 Atherosclerotic heart disease of native coronary artery without angina pectoris (principal)
CPT/HCPCS: 78452; 93017; A9502

== ENCOUNTER 2023-01-27 09:07 | Day surgery (SDC) | payer OTHER ==
[~2023-01-27] VITALS: Ht 172 cm; Wt 105.7 kg
[2023-01-27] VITALS (11 sets, daily range): BP systolic 97–121; BP diastolic 60–85
[~2023-01-27 09:07] MED LIST changes: -CATHETER FLUSH 10 ML SYR IVP PRN; -REGADENOSON 0.4 MG/5 ML SYR (LEXISCAN) IV ONE
[2023-01-27] MEDS ORDERED: HEParin (CATH LAB) 2,000 ML IV ONE (09:24)
[2023-01-27] MEDS ORDERED: NS IV 1000 ML 1,000 ML ONE (09:24)
[2023-01-27] MEDS ORDERED: LIDOCAINE 1% INJ 20 ML VIAL ONE (09:24)
[2023-01-27] MEDS ORDERED: NS IV 1000 ML 1,000 ML IV ONE (09:30)
[2023-01-27 09:56] LABS: HEMATOCRIT 43 % (40-54); HEMOGLOBIN 15.1 g/dL (13.3-17.7); MEAN CORPUSCULAR HEMOGLOBIN 32 pg (25-34); MEAN CORPUSCULAR HGB CONC 36 g/dL (32-36); MEAN CORPUSCULAR VOLUME 90 fL (80-99); PLATELET COUNT 210 10^3/uL (130-400); WHITE BLOOD COUNT 7.1 10^3/uL (4.3-11.0)
[2023-01-27 10:08] LABS: PROTHROMBIN TIME PATIENT 13.7 SEC (12.2-14.7)
[2023-01-27] MEDS ORDERED: MULT-1136 PO (10:14)
[2023-01-27] MEDS ORDERED: MTP100TCR PO (10:14)
[2023-01-27] MEDS ORDERED: TMSL.4C PO (10:14)
[2023-01-27] MEDS ORDERED: ASPI-999 PO (10:14)
[2023-01-27] MEDS ORDERED: LEVO125C4 PO (10:14)
[2023-01-27] MEDS ORDERED: CETI10TA17 PO (10:14)
[2023-01-27] MEDS ORDERED: APIX5TAB PO (10:14)
[2023-01-27 10:17] LABS: ALBUMIN 4.2 GM/DL (3.2-4.5); BILIRUBIN,TOTAL 0.9 MG/DL (0.1-1.0); CALCIUM 9.5 MG/DL (8.5-10.1); CREATININE SERUM 1.16 MG/DL (0.60-1.30); POTASSIUM 3.9 MMOL/L (3.6-5.0); TOTAL PROTEIN 6.9 GM/DL (6.4-8.2)
[2023-01-27] MEDS ORDERED: NITRO DRIP 25000 MCG/D5W 0 ML IV ONE (11:46)
[2023-01-27] MEDS ORDERED: HEParin 1000 UNIT/ML (10ML VIAL) FOR BOLUS ONE (11:46)
[2023-01-27] MEDS ORDERED: MIDAZOLAM 5 MG/5 ML (VERSED) VIAL ONE (11:46)
[2023-01-27] MEDS ORDERED: fentaNYL INJ 100 MCG/2 ML AMP ONE (11:46)
[2023-01-27] MEDS ORDERED: VERAPAMIL 5 MG/2 ML (CALAN) VIAL IV ONE (11:46)
--- NOTE | 2023-01-27 12:53 | Cardiac Procedure Note-CS/ASA ---
Pre-Procedure Note Pre-Op Procedure Note Date of Available H&P: Jan 15, 2023 Date H&P Reviewed: Jan 27, 2023 Time H&P Reviewed: 11:30 History & Physical: H&P Reviewed, No changes noted Moderate Sedation PreProcedure ASA Score 3 Airway Lungs Heart ASA score ASA 1: a normal healthy patient ASA 2: a patient with a mild systemic disease (mid diabetes, controlled hypertension, obesity ASA 3: a patient with a severe systemic disease that limits activity (angina, COPD, prior Myocardial infarction) ASA 4: a patient with an incapacitating disease that is a constant threat to life (CHF, renal failure) ASA 5: a moribund patient not expected to survive 24 hrs. (ruptured aneurysm) ASA 6: a declared brain- patient whose organs are being harvested. For emergent operations, add the letter E after the classification Mallampati Classification Grade 2 Sedation Plan Analgesia, Amnesia, Plan communicated to team members The patient is an appropriate candidate to undergo the planned procedure, sedation, and anesthesia. The patient immediately re-assessed prior to indication. JORJE PAIZ MD FACP [facility] Jan 27, 2023 12:53
--- NOTE | 2023-01-27 13:01 | Cardiac Cath Report ---
CARDIAC CATHETERIZATION DATE OF PROCEDURE: 01-27-23 INDICATION: Abnormal stress test HISTORY: The patient is a 62 year old male with a h/o arrhythmia, including PAF and wide-complex tachy, and with recently increasing shortness of breath that led a myocardial perfusion imaging study that was suggestive of apical infarction and cardiomyopathy with LVEF 44%. Card cath was recommended PROCEDURES PERFORMED: 1. Cor angio 2. Left heart cath 3. Left ventricular angiography PROCEDURE DESCRIPTION: After informed consent and in the fasting state, left heart catheterization was performed through the R femoral artery utilizing a 5 [place] system by percutaneous approach. JL4 for LAD, JL4.5 for LCx, JR4 for RCA, pigtail for LHC LV angio: mild to moderate global hypokinesis, LVEF approx 40-45% HEMODYNAMICS: LVEDP 10 mmHg, no significant pressure gradient on pullback across the aortic valve CORONARY ANGIOGRAPHY: Left main coronary artery: Non-existent, LAD and LCx have separate ostia Left anterior descending coronary artery: Ok Left circumflex coronary artery: Dominant, Ok Right coronary artery: Non-dominant, Ok IMPRESSION: 1. No significant CAD 2. LVEDP 10 mmHg 3. Mild to mod global hypokinesis of the LV and LVEF 40-45% JORJE PAIZ MD F[facility] Jan 27, 2023 13:01
[2023-01-27] MEDS ORDERED: LISI5TAB20 PO (13:08)
--- NOTE | 2023-01-27 13:09 | Discharge Inst-Cardiology ---
Discharge Inst-Cardiac Discharge Medications New Medications: Lisinopril (Lisinopril) 5 Mg Tablet 5 MG PO DAILY, #30 TAB 5 Refills Continued Medications: Apixaban (Eliquis) 5 Mg Tablet 5 MG PO BID, TAB Aspirin (Aspirin) 81 Mg Tab.chew 81 MG PO DAILY, TAB Cetirizine HCl (Cetirizine HCl) 10 Mg Tablet 10 MG PO DAILY, TAB Levothyroxine Sodium (Levothyroxine) 125 Mcg Capsule 125 MCG PO DAILY, CAP Metoprolol Succinate (Metoprolol Succinate) 100 Mg Tab.er.24h 100 MG PO DAILY, TAB Multivitamin (Multivitamin) 1 Each Tablet 1 EACH PO DAILY, TAB Tamsulosin HCl (Flomax) 0.4 Mg Cap 0.4 MG PO HS, JORJE ORNELAS MD FACP [facility] Jan 27, 2023 13:09
--- NOTE | 2023-01-27 13:10 | Discharge Inst-Post CATH ---
Discharge Inst-CATH/EP Post Cardiac Cath/EP D/C Inst Follow Up/Plan F/u with Dr Blanton in 2 weeks ACTIVITY * Go Home directly and rest. * Limit activity of the leg (or wrist if it was used) for 7 days including aerobics, swimming, jogging, bicycling, etc. * Restrict stair-climbing for 7 days if possible, if not, climb up with your no n-cath leg, then bring together on the same step. * Avoid lifting, pushing, pulling or excessive movement of the affected ext remity for 7 days. * Customary sexual activity may be resumed after 2 days-use caution not to use a position that strains or causes pain to the affected extremity. * No driving for 24 hours. * NO SMOKING. * Avoid straining for bowel movements for 7 days. * Gentle walking on level ground is allowed. * Returning to work will depend on the type of procedure and the results. Your doctor will discuss this with you. CALL YOUR DOCTOR FOR ANY OF THE FOLLOWING: *If bleeding from the puncture site occurs- Apply gentle pressure to site with clean cloth and call your doctor or EMS. * If a knot or lump forms under the skin, increases in size, or causes pain. * If bruising appears to be worsening or moving further down your leg instead of disappearing. * Temperature above 101 F. CARE OF YOUR GROIN INCISION; * Bruising or purple discoloration of the skin near the puncture site is common. * You may shower only, no bathtub bathing for 5 days. Be careful to avoid slipping as your leg may feel stiff. * If a closure device was used on your femoral artery, please see the attached guide regarding care of the device and your leg. * Leave dressing on FOR 24 hours. CARE OF YOUR WRIST INCISION; * Bruising or purple discoloration of the skin near the puncture site is common. * You may shower. * DO NOT submerge wrist. * Leave dressing on FOR 24 hours. JOREJ BLANTON MD [facility] CCDS Jan 27, 2023 13:10
[2023-01-27] MEDS ORDERED: PATIENT MAY USE OWN MEDS, ALL PO SCH (13:15)
[2023-01-27] MEDS ORDERED: NS IV 1000 ML 1,000 ML IV SCH (13:15)
== END 2023-01-27 16:38 | disposition home or self-care (01) ==
LOC: CATH 09:07 → SDC 13:12 → CATH 16:38
PROVIDERS: ATTEND Internal Medicine Cardiovascular Disease
DX: R94.39 Abnormal result of other cardiovascular function study (principal); I51.89 Other ill-defined heart diseases; E66.9 Obesity, unspecified; I48.0 Paroxysmal atrial fibrillation; G47.33 Obstructive sleep apnea (adult) (pediatric); I25.10 Atherosclerotic heart disease of native coronary artery without angina pectoris; Z79.01 Long term (current) use of anticoagulants; Z68.35 Body mass index [BMI] 35.0-35.9, adult; Z95.810 Presence of automatic (implantable) cardiac defibrillator; Z79.82 Long term (current) use of aspirin; Z28.310 Unvaccinated for COVID-19
CPT/HCPCS: 80053; 80061; 85027; 85610; 85730; 87081; 93005; 93458; C1760; C1894; 36415

== ENCOUNTER → 2023-02-03 | Outpatient (CLI) | payer OTHER ==
[~2023-02-03] MED LIST changes: +APIX5TAB PO; +ASPI-999 PO; +CETI10TA17 PO; +LEVO125C4 PO; +LISI5TAB20 PO; +MTP100TCR PO; +MULT-1136 PO; +TMSL.4C PO
[2023-02-03 17:34] LABS: CALCIUM 9.5 MG/DL (8.5-10.1); CREATININE SERUM 1.32 MG/DL (0.60-1.30)
== END ==
LOC: LAB 16:53
PROVIDERS: ATTEND Internal Medicine Cardiovascular Disease
DX: I42.8 Other cardiomyopathies (principal)
CPT/HCPCS: 36415; 80048